=== PATIENT | male | born 1970 | race Caucasian/White ===

== ENCOUNTER 2016-08-11 09:05 | Emergency (ER) | payer SELFPAY ==
[2016-08-11] MEDS ORDERED: Sodium Chloride 0.9% 1,000 ML IV SCH (10:15)
--- NOTE | 2016-08-11 10:43 | EDM.PDOC ---
ED HPI GENERAL MEDICAL PROBLEM - General Chief Complaint: Back Pain or Injury Stated Complaint: BAD RIGHT SIDE PAIN Time Seen by Provider: 08/11/16 09:13 Source of Information: Reports: Patient, RN notes reviewed History Limitations: Reports: No Limitations - History of Present Illness INITIAL COMMENTS - FREE TEXT/NARRATIVE: The patient states that he has had right sided abdominal and right flank pain since yesterday, 08/10/2016, but that it is gotten worse today. He states that it waxes and wanes. It is made worse with deep breaths, making the left turns in his vehicle, and with various movements. It is made better with palpation of the area and remaining still. No recent fever, cough, nausea, vomiting, constipation, diarrhea, or urinary symptoms. The patient states that he has had similar symptoms on and off for the past several years. His only prior evaluations have been in the ED - he has never followed up with a PCP. Right Lower Back Pain Score (Numeric/FACES): 10 - Related Data Allergies Allergy/AdvReac Type Severity Reaction Status Date / Time amoxicillin Allergy Rash Verified 08/11/16 09:17 Penicillins Allergy Rash Verified 08/11/16 09:17 venom-honey bee Allergy Shortness Verified 08/11/16 09:17 of Breath Home Meds: Home Meds Orphenadrine [Norflex] 1 tab PO Q12H #20 tab.er 08/11/16 [Rx] Past Medical History Psychiatric History: Reports: Addiction - Past Surgical History Respiratory Surgical History: Reports: Other (see below) (Right chest tube) GI Surgical History: Reports: Hernia, inguinal (left) Musculoskeletal Surgical History: Reports: ORIF (right foot) Social & Family History - Family History Family Medical History: Noncontributory - Tobacco Use Smoking Status *Q: Current Every Day Smoker Years of Tobacco use: 30 Packs/Tins Daily: 1 Packs/Tins Daily Comment: down from 2 ppd - Caffeine Use Caffeine Use: Reports: Coffee, Soda - Alcohol Use Alcohol Use History: Yes Days Per Week of Alcohol Use: 7 Number of Drinks Per Day: 12 Total Drinks Per Week: 84 Alcohol Use Frequency: Daily - Recreational Drug Use Recreational Drug Use: Yes Drug Use in Last 12 Months: Yes Recreational Drug Type: Reports: Cocaine, Marijuana/Hashish, Methamphetamine Recreational Drug Use Frequency: Socially - Living Situation & Occupation Living situation: Reports: (), with family (daughter) Occupation: employed ([employer]) ED ROS GENERAL - Review of Systems Review Of Systems: See Below Constitutional: Reports: No Symptoms HEENT: Reports: No Symptoms Respiratory: Reports: No Symptoms Cardiovascular: Reports: No Symptoms Endocrine: Reports: No Symptoms GI/Abdominal: Reports: No Symptoms : Reports: No Symptoms Musculoskeletal: Reports: No Symptoms Skin: Reports: No Symptoms Neurological: Reports: No Symptoms Psychiatric: Reports: No Symptoms Hematologic/Lymphatic: Reports: No Symptoms Immunologic: Reports: No Symptoms ED EXAM, GENERAL - Physical Exam Exam: See Below Exam Limited By: No Limitations General Appearance: Alert, WD/WN, Mild Distress Eye Exam: Bilateral Eye: Normal Inspection Ears: Normal External Exam, Hearing Grossly Normal Ear Exam: bilateral ear: auricle normal Nose: Normal Inspection, No Blood Throat/Mouth: Normal Inspection, Normal Lips, Normal Voice, No Airway Compromise Head: Atraumatic, Normocephalic Neck: Normal Inspection, Full Range of Motion Respiratory/Chest: No Respiratory Distress, Lungs Clear, Normal Breath Sounds, No Accessory Muscle Use Cardiovascular: Normal Peripheral Pulses, Regular Rate, Rhythm, No Gallop, No JVD, No Murmur, No Rub Peripheral Pulses: 4+: Radial (L), Radial (R) GI/Abdominal: Normal Bowel Sounds, Soft, No Organomegaly, No Distention, No Abnormal Bruit, No Mass, Tender (Exquisite, to the far right side and lateral aspect of the right flank. Nontender elsewhere.) (Male) Exam: No Hernia Rectal (Males) Exam: Deferred Back Exam: Normal Inspection, Full Range of Motion, CVA Tenderness (R) (As above ). No: CVA Tenderness (L) Extremities: Normal Inspection, Normal Range of Motion, No Pedal Edema, Normal Capillary Refill Neurological: Alert, Oriented, Normal Cognition, No Motor/Sensory Deficits Psychiatric: Normal Affect Skin Exam: Warm, Dry, Intact, Normal Color, No Rash Lymphatic: No Adenopathy Course - Vital Signs Last Recorded V/S: Last Vital Signs Temp 36.5 C 08/11/16 09:12 Pulse 81 08/11/16 09:12 Resp 20 08/11/16 09:12 BP 157/101 H 08/11/16 09:12 Pulse Ox 97 08/11/16 09:12 - Orders/Labs/Meds Orders: Active Orders 24 hr Category Date Time Status Sodium Chloride 0.9% [Normal Saline] 1,000 ml Med 08/11/16 10:15 Active IV ASDIRECTED Sodium Chloride 0.9% [Saline Flush] Med 08/11/16 11:16 Active 10 ml FLUSH ONETIME PRN Medication Orders Sodium Chloride (Normal Saline) 1,000 mls @ 150 mls/hr IV ASDIRECTED JOANNA Last Admin: 08/11/16 10:20 Dose: 150 mls/hr Sodium Chloride (Saline Flush) 10 ml FLUSH ONETIME PRN PRN Reason: IV FLUSH Last Admin: 08/11/16 11:23 Dose: 10 ml Labs: Laboratory Tests 08/11/16 08/11/16 08/11/16 Range/Units 09:20 09:40 10:12 WBC 8.41 (4.23-9.07) K/mm3 RBC 4.13 L (4.63-6.08) M/mm3 Hgb 13.8 (13.7-17.5) gm/L Hct 39.9 L (40.1-51.0) % MCV 96.6 H (79.0-92.2) fl MCH 33.4 H (25.7-32.2) pg MCHC 34.6 (32.2-35.5) g/dl RDW Std Deviation 43.1 (35.1-43.9) fL Plt Count 244 (163-337) K/mm3 MPV 9.6 (9.4-12.3) fl Neutrophils % (Manual) 63 H (40-60) % Band Neutrophils % 0 (0-10) % Lymphocytes % (Manual) 23 (20-40) % Atypical Lymphs % 0 % Monocytes % (Manual) 8 (2-10) % Eosinophils % (Manual) 6 (0.8-7.0) % Basophils % (Manual) 0 L (0.2-1.2) Platelet Estimate Adequate RBC Morph Comment Normal Sodium 142 (136-145) mEq/L Potassium 4.7 (3.5-5.1) mEq/L Chloride 109 H (98-107) mEq/L Carbon Dioxide 23 (21-32) mEq/L Anion Gap 14.7 (5-15) BUN 12 (7-18) mg/dL Creatinine 0.9 (0.7-1.3) mg/dL Est Cr Clr Drug Dosing 103.64 mL/min Estimated GFR (MDRD) > 60 (>60) mL/min BUN/Creatinine Ratio 13.3 L (14-18) Glucose 102 (74-106) mg/dL Calcium 8.6 (8.5-10.1) mg/dL Total Bilirubin 0.4 (0.2-1.0) mg/dL AST 22 (15-37) U/L ALT 34 (16-63) U/L Alkaline Phosphatase 81 (46-116) U/L Total Protein 7.5 (6.4-8.2) g/dl Albumin 3.8 (3.4-5.0) g/dl Globulin 3.7 gm/dL Albumin/Globulin Ratio 1.0 (1-2) Lipase 134 (73-393) U/L Urine Color Yellow (Yellow) Urine Appearance Clear (Clear) Urine pH 6.0 (5.0-8.0) Ur Specific [place] > or = 1.030 (1.005-1.030) Urine Protein Negative (Negative) Urine Glucose (UA) Negative (Negative) Urine Ketones Negative (Negative) Urine Occult Blood Negative (Negative) Urine Nitrite Negative (Negative) Urine Bilirubin Negative (Negative) Urine Urobilinogen 0.2 (0.2-1.0) Ur Leukocyte Esterase Negative (Negative) Urine RBC 0-5 (0-5) /hpf Urine WBC 0-5 (0-5) /hpf Ur Epithelial Cells 0-5 (0-5) /hpf Urine Bacteria Rare (FEW) /hpf Urine Mucus Moderate H (FEW) /hpf Meds: Medications Generic Name Dose Route Start Last Admin Trade Name Freq PRN Reason Stop Dose Admin Sodium Chloride 1,000 mls @ 150 mls/hr 08/11/16 10:15 08/11/16 10:20 Normal Saline IV 150 mls/hr ASDIRECTED JOANNA Administration Sodium Chloride 10 ml 08/11/16 11:16 08/11/16 11:23 Saline Flush FLUSH 10 ml ONETIME PRN Administration IV FLUSH Discontinued Medications Generic Name Dose Route Start Last Admin Trade Name Freq PRN Reason Stop Dose Admin Diatrizoate Meglum/Diatrizoate Sod 90 ml 08/11/16 11:16 08/11/16 11:23 Gastrografin 37% PO 08/11/16 11:17 90 ml ONETIME ONE Administration Iopamidol 150 ml 08/11/16 11:16 08/11/16 11:23 Isovue-300 (61%) IVPUSH 08/11/16 11:17 125 ml ONETIME ONE Administration Orphenadrine Citrate 100 mg 08/11/16 12:17 08/11/16 12:40 Norflex PO 08/11/16 12:18 100 mg ONETIME STA Administration - Radiology Interpretation Free Text/Narrative:: CT of the chest with IV contrast is read by Dr. Person as: 1. Slight areas of scarring within the superior segment of the left lower lung with adjacent pleural thickening and pleural calcification. This is felt to be chronic. 2. Calcified granuloma within the upper right lung. 3. Other incidental findings. CT of the abdomen and pelvis with IV contrast is read by Dr. Person as: 1. Mild increased stool and other incidental findings to 2. Nothing acute is appreciated on CT study of the abdomen and pelvis. - Re-Assessments/Exams Free Text/Narrative Re-Assessment/Exam: 08/11/16 12:43 Test results discussed with the patient. Today's workup is entirely unremarkable, and does not explain the cause of the patient's pain. I suspect it is due to a muscle spasm or strain. I have started him on Norflex, and will prescribe the same. I will refer him to the clinic, as he does not currently have a PCP. Departure - Departure Time of Disposition: 12:43 Disposition: Home, Self-Care 01 Condition: fair Clinical Impression: Muscle spasm - Discharge Information Referrals: PCP,None [Primary Care Provider] - Kala Sandoval PA-C [Physician [employer]] - Forms: ED Department Discharge Additional Instructions: You were seen in the emergency room for recurrent right sided pain. Workup in the ER included blood work, a urinalysis, and a CT scan of your chest , abdomen, and pelvis. Your entire workup was unremarkable. You do not have a kidney stone. You do not have pneumonia. No lung tumor was found. The cause of your right-sided pain is unclear, but we suspect it is due to a muscle spasm. You have been started on the muscle relaxant Norflex. Take one tablet every 12 hours, as prescribed. If your symptoms persist, we recommend you followup with Kala Sandoval in the clinic. If any other problems, please do not hesitate to return to the ER. - My Orders Last 24 Hours: My Active Orders 08/11/16 10:15 Sodium Chloride 0.9% [Normal Saline] 1,000 ml IV ASDIRECTED 08/11/16 11:16 Sodium Chloride 0.9% [Saline Flush] 10 ml FLUSH ONETIME PRN - Assessment/Plan Last 24 Hours: My Active Orders 08/11/16 10:15 Sodium Chloride 0.9% [Normal Saline] 1,000 ml IV ASDIRECTED 08/11/16 11:16 Sodium Chloride 0.9% [Saline Flush] 10 ml FLUSH ONETIME PRN
[2016-08-11] MEDS ORDERED: Diatrizoate Meglumine/Diatrizoate Sodium 37% 120 ML Bottle PO ONE (11:16)
[2016-08-11] MEDS ORDERED: Iopamidol 612 MG/ML 150 ML Bottle IVPUSH ONE (11:16)
[2016-08-11] MEDS ORDERED: Sodium Chloride 0.9% 10 ML Syringe FLUSH PRN (11:16)
--- NOTE | 2016-08-11 11:52 | CT ---
CT chest Technique: Multiple axial sections were obtained from above the lung apices inferiorly through the lung bases. Intravenous contrast was utilized. Comparison: No previous chest CT, previous chest x-ray of 08/31/15 is available. Findings: No axillary adenopathy is seen. Mediastinum and hilar regions show no adenopathy or mass. Normal size lymph nodes are seen within the pretracheal region. No pericardial thickening is seen. No coronary artery calcification is noted. Calcified granuloma is noted within the right upper lung. Slight scarring is believed to be present within the superior segment of the left lower lung with slight associated pleural thickening with calcification. Mild dependent atelectasis is incidentally noted posteriorly. Bone window settings were reviewed which shows mild diffuse disc space narrowing and endplate osteophytes within the mid and lower thoracic spine. No rib fracture is identified. Impression: 1. Slight areas of scarring within the superior segment of the left lower lung with adjacent pleural thickening and pleural calcification. This is felt to be chronic. 2. Calcified granuloma within the upper right lung. 3. Other incidental findings. Diagnostic code #2 CT abdomen and pelvis Technique: Multiple axial sections were obtained from above the dome of the diaphragm inferiorly through the pubic symphysis. Delayed images were obtained through the bladder. Comparison: No previous abdominal imaging. Findings: Liver shows no focal parenchymal abnormality. Spleen appears within normal limits. Adrenal glands show no nodule. Pancreas is within normal limits. Kidneys show symmetric contrast enhancement without hydronephrosis or mass. Aorta shows no aneurysmal dilatation. No retroperitoneal adenopathy is seen. No mesenteric abnormalities are seen. No pelvic mass or adenopathy is noted. Delayed images shows contrast within the distal ureters and within the bladder. Mild increased stool is seen within the colon. Appendix is seen which appears normal. No free fluid or inflammatory change is seen. Bone window settings were reviewed which shows severe disc space narrowing at L5-S1. Impression: 1. Mild increased stool and other incidental findings. 2. Nothing acute is appreciated on CT study of the abdomen and pelvis. Diagnostic code #2
[2016-08-11] MEDS ORDERED: Orphenadrine 100 MG Tab.ER PO STA (12:17)
[2016-08-11 14:00] VITALS: BP 140/88
== END 2016-08-11 13:00 | disposition home or self-care (01) ==
LOC: JD.ED 09:05
DX: M62.838 Other muscle spasm (principal); R10.9 Unspecified abdominal pain; F17.210 Nicotine dependence, cigarettes, uncomplicated
CPT/HCPCS: 36415; 71260; 74177; 80053; 81001; 83690; 85025; 96360; 96361; 99284; A9270; J7040; J7050; Q9963; Q9967; 99283

== ENCOUNTER 2017-05-10 08:16 | Emergency (ER) | payer BC ==
[2017-05-10 08:31] VITALS: BP 173/109
[2017-05-10] MEDS ORDERED: Ketorolac 60 MG/2 ML SDV IM ONE (08:47)
[2017-05-10] MEDS ORDERED: Diazepam 5 MG Tab PO ONE (08:47)
[2017-05-10] MEDS ORDERED: HYDROmorphone 1 MG/ML Syringe IM ONE (08:47)
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
--- NOTE | 2017-05-10 09:19 | CR ---
Cervical spine: AP, lateral and odontoid views of the cervical spine were obtained. Comparison: No prior cervical spine study. Vertebral body heights and disc spaces are maintained. Mild endplate osteophytes are seen anteriorly within C4 and C5. Mild scoliosis is noted. No subluxation or fracture is seen. Impression: 1. Mild scoliosis. 2. Minimal degenerative change is noted. Diagnostic code #2
== END 2017-05-10 10:10 | disposition home or self-care (01) ==
LOC: JD.ED 08:16
DX: M43.6 Torticollis (principal); N18.9 Chronic kidney disease, unspecified; F17.210 Nicotine dependence, cigarettes, uncomplicated; Z88.1 Allergy status to other antibiotic agents; Z88.0 Allergy status to penicillin; Z91.030 Bee allergy status
CPT/HCPCS: 72040; 96372; 99283; A9270; J1170; J1885; 99284

== ENCOUNTER 2020-01-14 13:09 | Emergency (ER) | payer BC, OTHER ==
[2020-01-14 13:23] VITALS: PULSE 92
[2020-01-14 13:28] VITALS: BP 170/111
[2020-01-14] MEDS ORDERED: Ondansetron 4 MG/2 ML SDV IVPUSH ONE (13:37)
[2020-01-14] MEDS ORDERED: Ketorolac 30 MG/ML SDV IVPUSH ONE (13:37)
[2020-01-14] MEDS ORDERED: Cyclobenzaprine 10 MG Tab PO ONE (13:37)
[2020-01-14] MEDS ORDERED: HYDROmorphone 0.5 MG/0.5 ML Syringe IVPUSH ONE (13:37)
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
== END 2020-01-14 15:40 | disposition home or self-care (01) ==
LOC: JD.ED 13:09
DX: M54.6 Pain in thoracic spine (principal); J45.909 Unspecified asthma, uncomplicated; I25.2 Old myocardial infarction; I12.9 Hypertensive chronic kidney disease with stage 1 through stage 4 chronic kidney disease, or unspecified chronic kidney disease; N18.9 Chronic kidney disease, unspecified; F17.210 Nicotine dependence, cigarettes, uncomplicated; Z88.1 Allergy status to other antibiotic agents; Z91.041 Radiographic dye allergy status; Z91.030 Bee allergy status; Z88.0 Allergy status to penicillin
CPT/HCPCS: 81001; 96374; 96375; 99284; A9270; J1170; J1885; J2405; 99283

== ENCOUNTER 2020-03-31 21:58 | Emergency (ER) | payer OTHER ==
[2020-03-31 22:18] VITALS: BP 164/124; PULSE 100
== END 2020-03-31 22:48 | disposition left against medical advice (07) ==
LOC: JD.ED 21:58
DX: Z53.21 Procedure and treatment not carried out due to patient leaving prior to being seen by health care provider (principal)
CPT/HCPCS: 36415; 80053; 80307; 82150; 83690; 84484; 85025; 93005; 93010

== ENCOUNTER 2020-04-19 01:10 | Emergency (ER) | payer OTHER ==
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
[2020-04-19 01:48] VITALS: BP 135/106; PULSE 90
== END 2020-04-19 01:46 ==
LOC: JD.ED 01:10
DX: F10.229 Alcohol dependence with intoxication, unspecified (principal); I10 Essential (primary) hypertension; E66.9 Obesity, unspecified; Z72.0 Tobacco use; Z88.0 Allergy status to penicillin; Z91.041 Radiographic dye allergy status; Z91.030 Bee allergy status; Z88.1 Allergy status to other antibiotic agents
CPT/HCPCS: 99283

== ENCOUNTER 2020-04-29 11:06 | Inpatient (IN) | payer OTHER ==
[2020-04-29] MEDS ORDERED: Sodium Chloride 0.9% 10 ML Syringe FLUSH PRN (11:24)
[2020-04-29] MEDS ORDERED: Ondansetron 4 MG/2 ML SDV IVPUSH ONE (11:33)
[2020-04-29] MEDS ORDERED: LORazepam 2 MG/ML SDV IVPUSH ONE ×2 (11:33→13:24)
[2020-04-29] MEDS ORDERED: Sodium Chloride 0.9% 1,000 ML IV STA ×2 (11:33→12:48)
--- NOTE | 2020-04-29 11:39 | EDM.PDOC ---
ED HPI GENERAL MEDICAL PROBLEM - General Chief Complaint: Drug or Alcohol Abuse Stated Complaint: WITHDRAWAL Time Seen by Provider: 04/29/20 11:12 Source of Information: Reports: Patient, RN Notes Reviewed History Limitations: Reports: No Limitations - History of Present Illness INITIAL COMMENTS - FREE TEXT/NARRATIVE: Patient is a 50-year-old male presenting to the emergency department with complaints of alcohol withdrawal. Patient has a long history of alcohol abuse, most recently he has been drinking twenty four 16 ounce beers per day with occasional hard liquor. He was laid off from his job 2 months ago and this is when he began drinking excessively. Prior to this he would drink only socially. He has received notice that he is going back to work, therefore he must stop drinking. He stopped drinking yesterday, however last evening he had to have 2 beers around 8 PM to help with his shaking and dry heaves. At this time, patient complains of anxiety, tremors, nausea with dry heaving, and headache. He denies any active hallucinations. He has not had seizures with previous alcohol withdrawals. He denies any significant abdominal pain other than discomfort relating to the dry heaves. Right Flank Pain Score (Numeric/FACES): 3 - Related Data Allergies Allergy/AdvReac Type Severity Reaction Status Date / Time amoxicillin Allergy Rash Verified 04/29/20 11:13 Iodinated Contrast Media Allergy Rash Verified 04/29/20 11:13 [Iodinated Contrast- Oral and IV Dye] Penicillins Allergy Rash Verified 04/29/20 11:13 venom-honey bee Allergy Shortness Verified 04/29/20 11:13 of Breath levofloxacin [From Levaquin] AdvReac Itching Verified 04/29/20 11:13 Home Meds: Home Meds Escitalopram [Lexapro] 10 mg PO DAILY 04/29/20 [History] hydrOXYzine HCL [Hydroxyzine HCl] 25 mg PO DAILY 04/29/20 [History] lisinopriL [Lisinopril] 10 mg PO DAILY 04/29/20 [History] Past Medical History HEENT History: Reports: None Cardiovascular History: Reports: Hypertension Respiratory History: Reports: Pneumothorax Other Respiratory History: states had several stabs wounds to chest with chest tube placement. Other Gastrointestinal History: Right inguinal hernia Genitourinary History: Reports: Chronic Renal Insuffiency Musculoskeletal History: Reports: Fracture, Gout Other Musculoskeletal History: Herniated disc in lower back. Neurological History: Reports: Head Trauma Psychiatric History: Reports: Addiction, Anxiety, Panic Attack Endocrine/Metabolic History: Reports: Obesity/BMI 30+ Hematologic History: Reports: Blood Transfusion(s) Immunologic History: Reports: None Oncologic (Cancer) History: Reports: None Dermatologic History: Reports: None - Infectious Disease History Infectious Disease History: Reports: MRSA - Past Surgical History HEENT Surgical History: Reports: None Respiratory Surgical History: Reports: Other (See Below) GI Surgical History: Reports: Hernia, Inguinal Other GI Surgeries/Procedures: Right inguinal hernia repair Musculoskeletal Surgical History: Reports: ORIF Other Musculoskeletal Surgeries/Procedures:: L) foot surgery for Fx'd bones. - History Comment History Comment: Chronic daily alcohol use Social & Family History - Family History Family Medical History: No Pertinent Family History Cardiac: Reports: Hypertension, [place] Neurological: Reports: CVA - Tobacco Use Tobacco Use Status *Q: Current Every Day Tobacco User Years of Tobacco use: 30 Packs/Tins Daily: 1.5 - Caffeine Use Caffeine Use: Reports: Coffee, Tea Other Caffeine Use: Daily - Recreational Drug Use Recreational Drug Use: Yes Drug Use in Last 12 Months: No Recreational Drug Type: Reports: Cocaine, Marijuana/Hashish Recreational Drug Use Frequency: Not Used In Over 6 Months - Living Situation & Occupation Living situation: Reports: (), Other (With friends) Occupation: Unemployed (Laid-off [employer]) ED ROS GENERAL - Review of Systems Review Of Systems: See Below Constitutional: Reports: No Symptoms. Denies: Fever, Chills, Weakness HEENT: Reports: No Symptoms Respiratory: Reports: No Symptoms Cardiovascular: Reports: No Symptoms Endocrine: Reports: No Symptoms GI/Abdominal: Reports: Nausea, Vomiting. Denies: Abdominal Pain, Diarrhea : Reports: No Symptoms Musculoskeletal: Reports: No Symptoms Skin: Reports: No Symptoms Neurological: Reports: Headache. Denies: Dizziness Psychiatric: Reports: Anxiety. Denies: Hallucinations, Suicidal Ideation Hematologic/Lymphatic: Reports: No Symptoms Immunologic: Reports: No Symptoms ED EXAM, GENERAL - Physical Exam Exam: See Below Exam Limited By: No Limitations General Appearance: Alert, Anxious Eye Exam: Bilateral Eye: PERRL, Other (Watering bilaterally) Respiratory/Chest: No Respiratory Distress, Lungs Clear, Normal Breath Sounds, No Accessory Muscle Use, Chest Non-Tender Cardiovascular: Normal Peripheral Pulses, Regular Rate, Rhythm, No Edema, No Gallop, No JVD, No Murmur, No Rub GI/Abdominal: Normal Bowel Sounds, Soft, Non-Tender, No Organomegaly, No Distention, No Abnormal Bruit, No Mass Neurological: Alert, Oriented, Normal Cognition, Normal Gait, Normal Reflexes, No Motor/Sensory Deficits, Other (tremor) Psychiatric: Anxious Skin Exam: Warm, Intact, No Rash, Diaphoretic, Other (flushed) Lymphatic: No Adenopathy Course - Vital Signs Last Recorded V/S: Last Vital Signs Temp 97.4 F 04/29/20 11:19 Pulse 120 H 04/29/20 11:19 Resp 24 H 04/29/20 11:19 BP 183/104 H 04/29/20 11:19 Pulse Ox 95 04/29/20 11:19 - Orders/Labs/Meds Orders: Active Orders 24 hr Category Date Time Status Peripheral IV Care [RC] . DIRECTED Care 04/29/20 11:24 Active LORazepam [Ativan] Med 04/29/20 13:24 Once 1 mg IVPUSH ONETIME ONE Sodium Chloride 0.9% [Normal Saline] 1,000 ml Med 04/29/20 12:48 Active IV NOW Sodium Chloride 0.9% [Saline Flush] Med 04/29/20 11:24 Active 10 ml FLUSH ASDIRECTED PRN Peripheral IV Insertion Adult [OM.PC] Stat Oth 04/29/20 11:23 Ordered Medication Orders Sodium Chloride (Normal Saline) 1,000 mls @ 150 mls/hr IV NOW STA Stop: 04/29/20 19:27 Last Admin: 04/29/20 13:06 Dose: 150 mls/hr Documented by: ANDERSON Sodium Chloride (Saline Flush) 10 ml FLUSH ASDIRECTED PRN PRN Reason: Keep Vein Open Last Admin: 04/29/20 12:00 Dose: 10 ml Documented by: JEANNINE Labs: Laboratory Tests 04/29/20 04/29/20 04/29/20 Range/Units 11:40 11:40 11:40 WBC 7.29 (4.23-9.07) K/mm3 RBC 4.64 (4.63-6.08) M/mm3 Hgb 15.0 (13.7-17.5) gm/dl Hct 43.2 (40.1-51.0) % MCV 93.1 H (79.0-92.2) fl MCH 32.3 H (25.7-32.2) pg MCHC 34.7 (32.2-35.5) g/dl RDW Std Deviation 41.7 (35.1-43.9) fL Plt Count 219 (163-337) K/mm3 MPV 8.9 L (9.4-12.3) fl Neut % (Auto) 72.6 H (34.0-67.9) % Lymph % (Auto) 14.7 L (21.8-53.1) % Foard % (Auto) 10.7 (5.3-12.2) % Eos % (Auto) 1.4 (0.8-7.0) Baso % (Auto) 0.5 (0.1-1.2) % Neut # (Auto) 5.29 (1.78-5.38) K/mm3 Lymph # (Auto) 1.07 L (1.32-3.57) K/mm3 Foard # (Auto) 0.78 (0.30-0.82) K/mm3 Eos # (Auto) 0.10 (0.04-0.54) K/mm3 Baso # (Auto) 0.04 (0.01-0.08) K/mm3 Sodium 140 (136-145) mEq/L Potassium 4.5 (3.5-5.1) mEq/L Chloride 105 (98-107) mEq/L Carbon Dioxide 21 (21-32) mEq/L Anion Gap 18.5 H (5-15) BUN 19 H (7-18) mg/dL Creatinine 1.0 (0.7-1.3) mg/dL Est Cr Clr Drug Dosing 89.22 mL/min Estimated GFR (MDRD) > 60 (>60) mL/min BUN/Creatinine Ratio 19.0 H (14-18) Glucose 94 (74-106) mg/dL Calcium 8.8 (8.5-10.1) mg/dL Magnesium 2.0 (1.8-2.4) mg/dl Total Bilirubin 0.5 (0.2-1.0) mg/dL AST 60 H (15-37) U/L ALT 70 H (16-63) U/L Alkaline Phosphatase 69 (46-116) U/L C-Reactive Protein <0.2 (<1.0) mg/dL Total Protein 7.8 (6.4-8.2) g/dl Albumin 3.8 (3.4-5.0) g/dl Globulin 4.0 gm/dL Albumin/Globulin Ratio 1.0 (1-2) Lipase (73-393) U/L Urine Color (Yellow) Urine Appearance (Clear) Urine pH (5.0-8.0) Ur Specific Dexter (1.005-1.030) Urine Protein (Negative) Urine Glucose (UA) (Negative) Urine Ketones (Negative) Urine Occult Blood (Negative) Urine Nitrite (Negative) Urine Bilirubin (Negative) Urine Urobilinogen (0.2-1.0) Ur Leukocyte Esterase (Negative) Urine RBC (0-5) /hpf Urine WBC (0-5) /hpf Ur Squamous Epith Cells (0-5) /hpf Urine Bacteria (FEW) /hpf Urine Mucus (FEW) /hpf Urine Opiates Screen (PRRYTG=049) Ur Buprenorphine Scrn (CUTOFF=10) Ur Oxycodone Screen (FER4PY=578) Urine Methadone Screen (GXW5HI=068) Ur Propoxyphene Screen (JYPHVL=284) Ur Barbiturates Screen (UUWYEI=450) Ur Tricyclics Screen (IXEAVA=679) Ur Phencyclidine Scrn (CUTOFF=25) Ur Amphetamine Screen (EFFMCX=255) U Methamphetamines Scrn (VIVZCO=307) U Benzodiazepines Scrn (SXNWGZ=837) U Cocaine Metab Screen (YVXODI=492) U Marijuana (THC) Screen (CUTOFF=50) Ethyl Alcohol 0.03 (0.00) gm% SARS-CoV-2 RNA (EMMANUEL) (NEGATIVE) 04/29/20 04/29/20 04/29/20 Range/Units 11:40 11:56 12:45 WBC (4.23-9.07) K/mm3 RBC (4.63-6.08) M/mm3 Hgb (13.7-17.5) gm/dl Hct (40.1-51.0) % MCV (79.0-92.2) fl MCH (25.7-32.2) pg MCHC (32.2-35.5) g/dl RDW Std Deviation (35.1-43.9) fL Plt Count (163-337) K/mm3 MPV (9.4-12.3) fl Neut % (Auto) (34.0-67.9) % Lymph % (Auto) (21.8-53.1) % Foard % (Auto) (5.3-12.2) % Eos % (Auto) (0.8-7.0) Baso % (Auto) (0.1-1.2) % Neut # (Auto) (1.78-5.38) K/mm3 Lymph # (Auto) (1.32-3.57) K/mm3 Foard # (Auto) (0.30-0.82) K/mm3 Eos # (Auto) (0.04-0.54) K/mm3 Baso # (Auto) (0.01-0.08) K/mm3 Sodium (136-145) mEq/L Potassium (3.5-5.1) mEq/L Chloride (98-107) mEq/L Carbon Dioxide (21-32) mEq/L Anion Gap (5-15) BUN (7-18) mg/dL Creatinine (0.7-1.3) mg/dL Est Cr Clr Drug Dosing mL/min Estimated GFR (MDRD) (>60) mL/min BUN/Creatinine Ratio (14-18) Glucose (74-106) mg/dL Calcium (8.5-10.1) mg/dL Magnesium (1.8-2.4) mg/dl Total Bilirubin (0.2-1.0) mg/dL AST (15-37) U/L ALT (16-63) U/L Alkaline Phosphatase (46-116) U/L C-Reactive Protein (<1.0) mg/dL Total Protein (6.4-8.2) g/dl Albumin (3.4-5.0) g/dl Globulin gm/dL Albumin/Globulin Ratio (1-2) Lipase 165 (73-393) U/L Urine Color Yellow (Yellow) Urine Appearance Clear (Clear) Urine pH 5.5 (5.0-8.0) Ur Specific Dexter > or = 1.030 (1.005-1.030) Urine Protein Negative (Negative) Urine Glucose (UA) Negative (Negative) Urine Ketones Negative (Negative) Urine Occult Blood Negative (Negative) Urine Nitrite Negative (Negative) Urine Bilirubin Negative (Negative) Urine Urobilinogen 0.2 (0.2-1.0) Ur Leukocyte Esterase Negative (Negative) Urine RBC 0-5 (0-5) /hpf Urine WBC 0-5 (0-5) /hpf Ur Squamous Epith Cells 0-5 (0-5) /hpf Urine Bacteria Few (FEW) /hpf Urine Mucus Few (FEW) /hpf Urine Opiates Screen (JYGMUJ=266) Ur Buprenorphine Scrn (CUTOFF=10) Ur Oxycodone Screen (IZT0EG=440) Urine Methadone Screen (CVK8SB=694) Ur Propoxyphene Screen (MEJSEH=531) Ur Barbiturates Screen (BKEQLO=098) Ur Tricyclics Screen (ESFJXL=844) Ur Phencyclidine Scrn (CUTOFF=25) Ur Amphetamine Screen (WBTWXQ=890) U Methamphetamines Scrn (HKWMPD=993) U Benzodiazepines Scrn (VNVNZT=947) U Cocaine Metab Screen (BMSCNT=607) U Marijuana (THC) Screen (CUTOFF=50) Ethyl Alcohol (0.00) gm% SARS-CoV-2 RNA (EMMANUEL) Negative (NEGATIVE) 04/29/20 Range/Units 12:45 WBC (4.23-9.07) K/mm3 RBC (4.63-6.08) M/mm3 Hgb (13.7-17.5) gm/dl Hct (40.1-51.0) % MCV (79.0-92.2) fl MCH (25.7-32.2) pg MCHC (32.2-35.5) g/dl RDW Std Deviation (35.1-43.9) fL Plt Count (163-337) K/mm3 MPV (9.4-12.3) fl Neut % (Auto) (34.0-67.9) % Lymph % (Auto) (21.8-53.1) % Foard % (Auto) (5.3-12.2) % Eos % (Auto) (0.8-7.0) Baso % (Auto) (0.1-1.2) % Neut # (Auto) (1.78-5.38) K/mm3 Lymph # (Auto) (1.32-3.57) K/mm3 Foard # (Auto) (0.30-0.82) K/mm3 Eos # (Auto) (0.04-0.54) K/mm3 Baso # (Auto) (0.01-0.08) K/mm3 Sodium (136-145) mEq/L Potassium (3.5-5.1) mEq/L Chloride (98-107) mEq/L Carbon Dioxide (21-32) mEq/L Anion Gap (5-15) BUN (7-18) mg/dL Creatinine (0.7-1.3) mg/dL Est Cr Clr Drug Dosing mL/min Estimated GFR (MDRD) (>60) mL/min BUN/Creatinine Ratio (14-18) Glucose (74-106) mg/dL Calcium (8.5-10.1) mg/dL Magnesium (1.8-2.4) mg/dl Total Bilirubin (0.2-1.0) mg/dL AST (15-37) U/L ALT (16-63) U/L Alkaline Phosphatase (46-116) U/L C-Reactive Protein (<1.0) mg/dL Total Protein (6.4-8.2) g/dl Albumin (3.4-5.0) g/dl Globulin gm/dL Albumin/Globulin Ratio (1-2) Lipase (73-393) U/L Urine Color (Yellow) Urine Appearance (Clear) Urine pH (5.0-8.0) Ur Specific Dexter (1.005-1.030) Urine Protein (Negative) Urine Glucose (UA) (Negative) Urine Ketones (Negative) Urine Occult Blood (Negative) Urine Nitrite (Negative) Urine Bilirubin (Negative) Urine Urobilinogen (0.2-1.0) Ur Leukocyte Esterase (Negative) Urine RBC (0-5) /hpf Urine WBC (0-5) /hpf Ur Squamous Epith Cells (0-5) /hpf Urine Bacteria (FEW) /hpf Urine Mucus (FEW) /hpf Urine Opiates Screen Negative (OLFXPX=203) Ur Buprenorphine Scrn Negative (CUTOFF=10) Ur Oxycodone Screen Negative (GWD6ST=933) Urine Methadone Screen Negative (XDF2RY=761) Ur Propoxyphene Screen Negative (KFCEYX=928) Ur Barbiturates Screen Negative (HHANKG=754) Ur Tricyclics Screen Negative (KNBEWR=672) Ur Phencyclidine Scrn Negative (CUTOFF=25) Ur Amphetamine Screen Negative (ASGNRR=235) U Methamphetamines Scrn Negative (EGYBMF=312) U Benzodiazepines Scrn Negative (BLYVFB=212) U Cocaine Metab Screen Negative (GENPTV=780) U Marijuana (THC) Screen Negative (CUTOFF=50) Ethyl Alcohol (0.00) gm% SARS-CoV-2 RNA (EMMANUEL) (NEGATIVE) Meds: Medications Generic Name Dose Route Start Last Admin Trade Name Freq PRN Reason Stop Dose Admin Sodium Chloride 1,000 mls @ 150 mls/hr 04/29/20 12:48 04/29/20 13:06 Normal Saline IV 04/29/20 19:27 150 mls/hr NOW STA Administration Sodium Chloride 10 ml 04/29/20 11:24 04/29/20 12:00 Saline Flush FLUSH 10 ml ASDIRECTED PRN Administration Keep Vein Open Discontinued Medications Generic Name Dose Route Start Last Admin Trade Name Freq PRN Reason Stop Dose Admin Sodium Chloride 1,000 mls @ 999 mls/hr 04/29/20 11:33 04/29/20 11:50 Normal Saline IV 04/29/20 12:33 999 mls/hr NOW STA Administration Lorazepam 1 mg 04/29/20 11:33 04/29/20 11:49 Ativan IVPUSH 04/29/20 11:34 1 mg ONETIME ONE Administration Ondansetron HCl 4 mg 04/29/20 11:33 04/29/20 11:50 Zofran IVPUSH 04/29/20 11:34 4 mg ONETIME ONE Administration - Re-Assessments/Exams Free Text/Narrative Re-Assessment/Exam: Patient is a 50-year-old male presenting to the emergency department with complaints of alcohol withdrawal. For the last 2 months, he has been consuming approximately 384 ounces of beer per day as well as occasional hard liquor. He stopped drinking yesterday however had to take 2 beers at 8 PM last evening to help with the tremor. He has been notified that he is to go back to work, therefore he must stop drinking. On presentation to ER, patient is anxious, flushed, tremorous. Complains of nausea and dry heaving. CIWAA on triage was 19. Patient will likely require admission to the hospital given his significant withdrawal symptoms. I have ordered blood work, urinalysis, drug screen, Covid screen, 1 L of normal saline, Zofran 4 mg IV, and Ativan 1 mg IV. 04/29/20 13:25 Patient's work-up is grossly unremarkable. Blood alcohol 0.03, urine drug screen was negative. Case discussed with Dr. Forbes. He will admit the patient for alcohol detox. Patient is significantly tremulous. I ordered another Ativan 1 mg IV. Departure - Departure Time of Disposition: 13:26 Disposition: Admitted As Inpatient 64 Condition: Good Clinical Impression: Alcohol withdrawal syndrome Qualifiers: Complication of substance-induced condition: uncomplicated Qualified Code(s): F10.230 - Alcohol dependence with withdrawal, uncomplicated - Discharge Information Referrals: Merry Torres PA-C [Primary Care Provider] - Forms: ED Department Discharge Sepsis Event Note (ED) - Evaluation Sepsis Screening Result: No Definite Risk - Focused Exam Vital Signs: Vital Signs Temp Pulse Resp BP Pulse Ox 04/29/20 11:19 97.4 F 120 H 24 H 183/104 H 95 - My Orders Last 24 Hours: My Active Orders 04/29/20 11:23 Peripheral IV Insertion Adult [OM.PC] Stat 04/29/20 11:24 Peripheral IV Care [RC] . DIRECTED Sodium Chloride 0.9% [Saline Flush] 10 ml FLUSH ASDIRECTED PRN 04/29/20 12:48 Sodium Chloride 0.9% [Normal Saline] 1,000 ml IV NOW 04/29/20 13:24 LORazepam [Ativan] 1 mg IVPUSH ONETIME ONE - Assessment/Plan Last 24 Hours: My Active Orders 04/29/20 11:23 Peripheral IV Insertion Adult [OM.PC] Stat 04/29/20 11:24 Peripheral IV Care [RC] . DIRECTED Sodium Chloride 0.9% [Saline Flush] 10 ml FLUSH ASDIRECTED PRN 04/29/20 12:48 Sodium Chloride 0.9% [Normal Saline] 1,000 ml IV NOW 04/29/20 13:24 LORazepam [Ativan] 1 mg IVPUSH ONETIME ONE
--- NOTE | 2020-04-29 13:51 | PCM.HP.2 ---
H&P History of Present Illness - General Date of Service: 04/29/20 Admit Problem/Dx: Admission Diagnosis/Problem Admission Diagnosis/Problem Alcohol withdrawal syndrome Source of Information: Patient, Old Records History Limitations: Reports: No Limitations - History of Present Illness Initial Comments - Free Text/Narative: The patient is a 50-year-old gentleman who has presented to the emergency department out of concern for alcohol withdrawal. The patient reports that he was laid off from work several months ago and has been drinking heavily. The patient reports that he has been drinking at least 24 beers per day in addition to hard liquor. The patient also says that he has been drinking in the morning to help with his shakes and tremors. The patient has denied any withdrawal seizures. The patient also says that he has quit drinking in order to clean up because he got called back into work. 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 The patient says that his last drink was approximately 2 days ago. The patient has denied any pain. He had some vomiting this morning. The patient also uses tobacco. He does take medication for hypertension. The patient has been in his usual state of health up until the present time. Onset of Symptoms: Reports: Gradual Duration of Symptoms: Reports: Day(s):, Getting Worse Location: Reports: Generalized Quality: Reports: Ache Severity: Mild Improves with: Reports: None Worsens with: Reports: None Context: Reports: Other (Alcohol intoxication) Associated Symptoms: Reports: Diaphoresis, Other (Tremors) Right Flank Pain Score (Numeric/FACES): 3 - Related Data Allergies/Adverse Reactions: Allergies Allergy/AdvReac Type Severity Reaction Status Date / Time amoxicillin Allergy Rash Verified 04/29/20 11:13 Iodinated Contrast Media Allergy Rash Verified 04/29/20 11:13 [Iodinated Contrast- Oral and IV Dye] Penicillins Allergy Rash Verified 04/29/20 11:13 venom-honey bee Allergy Shortness Verified 04/29/20 11:13 of Breath levofloxacin [From Levaquin] AdvReac Itching Verified 04/29/20 11:13 Home Medications: Home Meds Escitalopram [Lexapro] 10 mg PO DAILY 04/29/20 [History] hydrOXYzine HCL [Hydroxyzine HCl] 25 mg PO DAILY 04/29/20 [History] lisinopriL [Lisinopril] 10 mg PO DAILY 04/29/20 [History] Past Medical History HEENT History: Reports: None Cardiovascular History: Reports: Hypertension Respiratory History: Reports: Pneumothorax Other Respiratory History: states had several stabs wounds to chest with chest tube placement. Other Gastrointestinal History: Right inguinal hernia Genitourinary History: Reports: Chronic Renal Insuffiency Musculoskeletal History: Reports: Fracture, Gout Other Musculoskeletal History: Herniated disc in lower back. Neurological History: Reports: Head Trauma Psychiatric History: Reports: Addiction, Anxiety, Panic Attack Endocrine/Metabolic History: Reports: Obesity/BMI 30+ Hematologic History: Reports: Blood Transfusion(s) Immunologic History: Reports: None Oncologic (Cancer) History: Reports: None Dermatologic History: Reports: None - Infectious Disease History Infectious Disease History: Reports: MRSA - Past Surgical History HEENT Surgical History: Reports: None Respiratory Surgical History: Reports: Other (See Below) GI Surgical History: Reports: Hernia, Inguinal Other GI Surgeries/Procedures: Right inguinal hernia repair Musculoskeletal Surgical History: Reports: ORIF Other Musculoskeletal Surgeries/Procedures:: L) foot surgery for Fx'd bones. - History Comment History Comment: Chronic daily alcohol use Social & Family History - Family History Family Medical History: No Pertinent Family History Cardiac: Reports: Hypertension, [place] Neurological: Reports: CVA - Tobacco Use Tobacco Use Status *Q: Current Every Day Tobacco User Years of Tobacco use: 30 Packs/Tins Daily: 1.5 - Caffeine Use Caffeine Use: Reports: Coffee, Tea Other Caffeine Use: Daily - Alcohol Use Alcohol Use History: Yes Days Per Week of Alcohol Use: 7 Number of Drinks Per Day: 24 Number of Drinks Per Day Comment: Plus hard liquor Total Drinks Per Week: 168 Date of Last Drink: 04/27/20 Alcohol Use in Last Twelve Months: Yes Alcohol Use Frequency: Daily - Recreational Drug Use Recreational Drug Use: Yes Drug Use in Last 12 Months: No Recreational Drug Type: Reports: Cocaine, Marijuana/Hashish Recreational Drug Use Frequency: Not Used In Over 6 Months - Living Situation & Occupation Living situation: Reports: (), Other (With friends) Occupation: Unemployed (Laid-off [employer]) H&P Review of Systems - Review of Systems: Review Of Systems: See Below General: Reports: Diaphoresis, Decreased Appetite HEENT: Reports: No Symptoms Pulmonary: Reports: Cough. Denies: Sputum Cardiovascular: Reports: No Symptoms Gastrointestinal: Reports: No Symptoms Genitourinary: Reports: No Symptoms Musculoskeletal: Reports: No Symptoms Skin: Reports: Erythema Psychiatric: Reports: Cravings Neurological: Reports: Tremors Hematologic/Lymphatic: Reports: No Symptoms Immunologic: Reports: No Symptoms Exam - Exam Exam: See Below - Vital Signs Vital Signs: Last Vital Signs Temp 36.3 C 04/29/20 11:19 Pulse 120 H 04/29/20 11:19 Resp 24 H 04/29/20 11:19 BP 183/104 H 04/29/20 11:19 Pulse Ox 95 04/29/20 11:19 Weight: 98.883 kg - Exam Quality Assessment: Supplemental Oxygen. No: DVT Prophylaxis General: Alert, Oriented, Cooperative, Moderate Distress HEENT: EACs Clear, EOMI, Hearing Intact, PERRLA. No: Conjunctiva Clear (Inflamed), Mucosa Moist & Temple (Dry with poor dentition ) Neck: Supple, Trachea Midline Lungs: Clear to Auscultation, Normal Respiratory Effort Cardiovascular: Regular Rhythm, Tachycardia GI/Abdominal Exam: Normal Bowel Sounds, Soft, Hepatomegaly (Male) Exam: Deferred Rectal (Males) Exam: Deferred Back Exam: Normal Inspection, Full Range of Motion Extremities: Normal Inspection, Normal Range of Motion, No Pedal Edema Skin: Warm, Dry, Other (Gilmer complexion) Neurological: Cranial Nerves Intact, Other (Coarse tremors) Neuro Extensive - Mental Status: Alert, Oriented x3 Psychiatric: Alert, Normal Affect, Normal Mood - Patient Data Lab Results Last 24 hrs: Laboratory Results - last 24 hr 04/29/20 04/29/20 04/29/20 Range/Units 11:40 11:40 11:40 WBC 7.29 (4.23-9.07) K/mm3 RBC 4.64 (4.63-6.08) M/mm3 Hgb 15.0 (13.7-17.5) gm/dl Hct 43.2 (40.1-51.0) % MCV 93.1 H (79.0-92.2) fl MCH 32.3 H (25.7-32.2) pg MCHC 34.7 (32.2-35.5) g/dl RDW Std Deviation 41.7 (35.1-43.9) fL Plt Count 219 (163-337) K/mm3 MPV 8.9 L (9.4-12.3) fl Neut % (Auto) 72.6 H (34.0-67.9) % Lymph % (Auto) 14.7 L (21.8-53.1) % Story % (Auto) 10.7 (5.3-12.2) % Eos % (Auto) 1.4 (0.8-7.0) Baso % (Auto) 0.5 (0.1-1.2) % Neut # (Auto) 5.29 (1.78-5.38) K/mm3 Lymph # (Auto) 1.07 L (1.32-3.57) K/mm3 Story # (Auto) 0.78 (0.30-0.82) K/mm3 Eos # (Auto) 0.10 (0.04-0.54) K/mm3 Baso # (Auto) 0.04 (0.01-0.08) K/mm3 Sodium 140 (136-145) mEq/L Potassium 4.5 (3.5-5.1) mEq/L Chloride 105 (98-107) mEq/L Carbon Dioxide 21 (21-32) mEq/L Anion Gap 18.5 H (5-15) BUN 19 H (7-18) mg/dL Creatinine 1.0 (0.7-1.3) mg/dL Est Cr Clr Drug Dosing 89.22 mL/min Estimated GFR (MDRD) > 60 (>60) mL/min BUN/Creatinine Ratio 19.0 H (14-18) Glucose 94 (74-106) mg/dL Calcium 8.8 (8.5-10.1) mg/dL Magnesium 2.0 (1.8-2.4) mg/dl Total Bilirubin 0.5 (0.2-1.0) mg/dL AST 60 H (15-37) U/L ALT 70 H (16-63) U/L Alkaline Phosphatase 69 (46-116) U/L C-Reactive Protein <0.2 (<1.0) mg/dL Total Protein 7.8 (6.4-8.2) g/dl Albumin 3.8 (3.4-5.0) g/dl Globulin 4.0 gm/dL Albumin/Globulin Ratio 1.0 (1-2) Lipase (73-393) U/L Urine Color (Yellow) Urine Appearance (Clear) Urine pH (5.0-8.0) Ur Specific [place] (1.005-1.030) Urine Protein (Negative) Urine Glucose (UA) (Negative) Urine Ketones (Negative) Urine Occult Blood (Negative) Urine Nitrite (Negative) Urine Bilirubin (Negative) Urine Urobilinogen (0.2-1.0) Ur Leukocyte Esterase (Negative) Urine RBC (0-5) /hpf Urine WBC (0-5) /hpf Ur Squamous Epith Cells (0-5) /hpf Urine Bacteria (FEW) /hpf Urine Mucus (FEW) /hpf Urine Opiates Screen (WUWPOU=978) Ur Buprenorphine Scrn (CUTOFF=10) Ur Oxycodone Screen (DQB9HX=793) Urine Methadone Screen (CID1AZ=016) Ur Propoxyphene Screen (JFMUMQ=824) Ur Barbiturates Screen (LHLTOI=264) Ur Tricyclics Screen (YTSYKB=382) Ur Phencyclidine Scrn (CUTOFF=25) Ur Amphetamine Screen (SQYHNA=310) U Methamphetamines Scrn (FVJDMM=153) U Benzodiazepines Scrn (FHLNJR=904) U Cocaine Metab Screen (GAOUHV=912) U Marijuana (THC) Screen (CUTOFF=50) Ethyl Alcohol 0.03 (0.00) gm% SARS-CoV-2 RNA (EMMANUEL) (NEGATIVE) 04/29/20 04/29/20 04/29/20 Range/Units 11:40 11:56 12:45 WBC (4.23-9.07) K/mm3 RBC (4.63-6.08) M/mm3 Hgb (13.7-17.5) gm/dl Hct (40.1-51.0) % MCV (79.0-92.2) fl MCH (25.7-32.2) pg MCHC (32.2-35.5) g/dl RDW Std Deviation (35.1-43.9) fL Plt Count (163-337) K/mm3 MPV (9.4-12.3) fl Neut % (Auto) (34.0-67.9) % Lymph % (Auto) (21.8-53.1) % Story % (Auto) (5.3-12.2) % Eos % (Auto) (0.8-7.0) Baso % (Auto) (0.1-1.2) % Neut # (Auto) (1.78-5.38) K/mm3 Lymph # (Auto) (1.32-3.57) K/mm3 Story # (Auto) (0.30-0.82) K/mm3 Eos # (Auto) (0.04-0.54) K/mm3 Baso # (Auto) (0.01-0.08) K/mm3 Sodium (136-145) mEq/L Potassium (3.5-5.1) mEq/L Chloride (98-107) mEq/L Carbon Dioxide (21-32) mEq/L Anion Gap (5-15) BUN (7-18) mg/dL Creatinine (0.7-1.3) mg/dL Est Cr Clr Drug Dosing mL/min Estimated GFR (MDRD) (>60) mL/min BUN/Creatinine Ratio (14-18) Glucose (74-106) mg/dL Calcium (8.5-10.1) mg/dL Magnesium (1.8-2.4) mg/dl Total Bilirubin (0.2-1.0) mg/dL AST (15-37) U/L ALT (16-63) U/L Alkaline Phosphatase (46-116) U/L C-Reactive Protein (<1.0) mg/dL Total Protein (6.4-8.2) g/dl Albumin (3.4-5.0) g/dl Globulin gm/dL Albumin/Globulin Ratio (1-2) Lipase 165 (73-393) U/L Urine Color Yellow (Yellow) Urine Appearance Clear (Clear) Urine pH 5.5 (5.0-8.0) Ur Specific [place] > or = 1.030 (1.005-1.030) Urine Protein Negative (Negative) Urine Glucose (UA) Negative (Negative) Urine Ketones Negative (Negative) Urine Occult Blood Negative (Negative) Urine Nitrite Negative (Negative) Urine Bilirubin Negative (Negative) Urine Urobilinogen 0.2 (0.2-1.0) Ur Leukocyte Esterase Negative (Negative) Urine RBC 0-5 (0-5) /hpf Urine WBC 0-5 (0-5) /hpf Ur Squamous Epith Cells 0-5 (0-5) /hpf Urine Bacteria Few (FEW) /hpf Urine Mucus Few (FEW) /hpf Urine Opiates Screen (JNPEKI=400) Ur Buprenorphine Scrn (CUTOFF=10) Ur Oxycodone Screen (MFR4DH=856) Urine Methadone Screen (NWM8WD=708) Ur Propoxyphene Screen (WIXFFN=258) Ur Barbiturates Screen (QGWMKI=662) Ur Tricyclics Screen (KIBSSK=460) Ur Phencyclidine Scrn (CUTOFF=25) Ur Amphetamine Screen (QNEHNH=816) U Methamphetamines Scrn (PSFOUO=777) U Benzodiazepines Scrn (STEHOL=319) U Cocaine Metab Screen (QRKPRV=405) U Marijuana (THC) Screen (CUTOFF=50) Ethyl Alcohol (0.00) gm% SARS-CoV-2 RNA (EMMANUEL) Negative (NEGATIVE) 04/29/20 Range/Units 12:45 WBC (4.23-9.07) K/mm3 RBC (4.63-6.08) M/mm3 Hgb (13.7-17.5) gm/dl Hct (40.1-51.0) % MCV (79.0-92.2) fl MCH (25.7-32.2) pg MCHC (32.2-35.5) g/dl RDW Std Deviation (35.1-43.9) fL Plt Count (163-337) K/mm3 MPV (9.4-12.3) fl Neut % (Auto) (34.0-67.9) % Lymph % (Auto) (21.8-53.1) % Story % (Auto) (5.3-12.2) % Eos % (Auto) (0.8-7.0) Baso % (Auto) (0.1-1.2) % Neut # (Auto) (1.78-5.38) K/mm3 Lymph # (Auto) (1.32-3.57) K/mm3 Story # (Auto) (0.30-0.82) K/mm3 Eos # (Auto) (0.04-0.54) K/mm3 Baso # (Auto) (0.01-0.08) K/mm3 Sodium (136-145) mEq/L Potassium (3.5-5.1) mEq/L Chloride (98-107) mEq/L Carbon Dioxide (21-32) mEq/L Anion Gap (5-15) BUN (7-18) mg/dL Creatinine (0.7-1.3) mg/dL Est Cr Clr Drug Dosing mL/min Estimated GFR (MDRD) (>60) mL/min BUN/Creatinine Ratio (14-18) Glucose (74-106) mg/dL Calcium (8.5-10.1) mg/dL Magnesium (1.8-2.4) mg/dl Total Bilirubin (0.2-1.0) mg/dL AST (15-37) U/L ALT (16-63) U/L Alkaline Phosphatase (46-116) U/L C-Reactive Protein (<1.0) mg/dL Total Protein (6.4-8.2) g/dl Albumin (3.4-5.0) g/dl Globulin gm/dL Albumin/Globulin Ratio (1-2) Lipase (73-393) U/L Urine Color (Yellow) Urine Appearance (Clear) Urine pH (5.0-8.0) Ur Specific [place] (1.005-1.030) Urine Protein (Negative) Urine Glucose (UA) (Negative) Urine Ketones (Negative) Urine Occult Blood (Negative) Urine Nitrite (Negative) Urine Bilirubin (Negative) Urine Urobilinogen (0.2-1.0) Ur Leukocyte Esterase (Negative) Urine RBC (0-5) /hpf Urine WBC (0-5) /hpf Ur Squamous Epith Cells (0-5) /hpf Urine Bacteria (FEW) /hpf Urine Mucus (FEW) /hpf Urine Opiates Screen Negative (WGDVQD=992) Ur Buprenorphine Scrn Negative (CUTOFF=10) Ur Oxycodone Screen Negative (RUW4CU=208) Urine Methadone Screen Negative (IYH7SD=838) Ur Propoxyphene Screen Negative (QNXBWN=466) Ur Barbiturates Screen Negative (IROMIL=405) Ur Tricyclics Screen Negative (WOYUGD=609) Ur Phencyclidine Scrn Negative (CUTOFF=25) Ur Amphetamine Screen Negative (HKPKBS=848) U Methamphetamines Scrn Negative (ECFNGF=160) U Benzodiazepines Scrn Negative (SLJEXF=261) U Cocaine Metab Screen Negative (ESMGDS=264) U Marijuana (THC) Screen Negative (CUTOFF=50) Ethyl Alcohol (0.00) gm% SARS-CoV-2 RNA (EMMANUEL) (NEGATIVE) Result Diagrams: 04/29/20 11:40 04/29/20 11:40 Sepsis Event Note - Evaluation Sepsis Screening Result: No Definite Risk - Focused Exam Vital Signs: Vital Signs Temp Pulse Resp BP Pulse Ox 04/29/20 11:19 36.3 C 120 H 24 H 183/104 H 95 - Problem List (1) Alcohol withdrawal syndrome SNOMED Code(s): 980208873 ICD Code: F10.239 - ALCOHOL DEPENDENCE WITH WITHDRAWAL, UNSPECIFIED Status: Acute Priority: High Current Visit: Yes Qualifiers: Complication of substance-induced condition: uncomplicated Qualified Code(s): F10.230 - Alcohol dependence with withdrawal, uncomplicated (2) Alcohol dependence, daily use SNOMED Code(s): 950401950 ICD Code: F10.20 - ALCOHOL DEPENDENCE, UNCOMPLICATED Status: Chronic Priority: High Current Visit: Yes (3) Tobacco dependence SNOMED Code(s): 87464578 ICD Code: F17.200 - NICOTINE DEPENDENCE, UNSPECIFIED, UNCOMPLICATED Status: Chronic Priority: Medium Current Visit: Yes (4) Dehydration SNOMED Code(s): 81039602 ICD Code: E86.0 - DEHYDRATION Status: Acute Priority: High Current Visit: Yes Problem List Initiated/Reviewed/Updated: Yes Orders Last 24hrs: Active Orders 24 hr Category Date Time Status Patient Status [ADT] Routine ADT 04/29/20 13:45 Active Peripheral IV Care [RC] . DIRECTED Care 04/29/20 11:24 Active Sodium Chloride 0.9% [Normal Saline] 1,000 ml Med 04/29/20 12:48 Active IV NOW Sodium Chloride 0.9% [Saline Flush] Med 04/29/20 11:24 Active 10 ml FLUSH ASDIRECTED PRN Peripheral IV Insertion Adult [OM.PC] Stat Oth 04/29/20 11:23 Ordered Medication Orders Sodium Chloride (Normal Saline) 1,000 mls @ 150 mls/hr IV NOW STA Stop: 04/29/20 19:27 Last Admin: 04/29/20 13:06 Dose: 150 mls/hr Documented by: ANDERSON Sodium Chloride (Saline Flush) 10 ml FLUSH ASDIRECTED PRN PRN Reason: Keep Vein Open Last Admin: 04/29/20 12:00 Dose: 10 ml Documented by: JEANNINE Assessment/Plan Comment:: The patient is a 50-year-old gentleman who will be admitted to the intensive care unit for very close monitoring. He does have severe tremors and tachycardia. The patient will be placed on CIWA protocol for alcohol withdrawal syndrome. The patient will also be kept on Ativan for possible seizure associated with alcohol withdrawal. He is currently tachycardic and will be kept on monitor. The patient is also nicotine dependent and will be afforded a nicotine patch at 21 mg daily. The patient will also have normal saline at 125 mg/h in order to help improve his dehydration. The patient also has been started on thiamine 100 mg p.o. daily and folate 1 mg daily as well as Librium 25 mg p.o. 3 times daily. Repeat laboratory studies have been ordered. The patient should be appropriate for discharge in 2 to 3 days. - Mortality Measure Prognosis:: Good
[2020-04-29] MEDS ORDERED: Docusate Sodium 100 MG Cap PO PRN (13:52)
[2020-04-29] MEDS ORDERED: Morphine 2 MG/ML SYRINGE IVPUSH PRN (13:52)
[2020-04-29] MEDS ORDERED: Ondansetron 4 MG Tab.DIS PO PRN (13:52)
[2020-04-29] MEDS ORDERED: LORazepam 2 MG/ML SDV IVPUSH PRN ×2 (13:52→14:32)
--- NOTE | 2020-04-29 14:58 | US ---
Limited abdominal ultrasound: Multiple real-time images of the upper right abdomen were obtained. Liver is echogenic as compared to the right kidney which most likely represents fatty infiltration. Hypoechoic area is identified next to the gallbladder compatible with small area of focal fatty sparing. Gallbladder contains no shadowing gallstones. No gallbladder wall thickening is seen. Common bile duct is within normal limits at 6.4 mm. Proximal aorta shows an AP dimension of 2.9 cm. Pancreas is poorly defined due to bowel gas. Inferior vena cava is patent. Main portal vein shows normal hepatopedal flow. Impression: 1. Liver shows evidence of fatty infiltration. Small area of focal fatty sparing is noted next to the gallbladder. 2. Upper abdominal aorta has an AP dimension of about 2.9 cm. 3. No acute abnormality is otherwise seen. Study is slightly limited as noted above. Diagnostic code #3
[2020-04-29] MEDS: Nicotine 21 MG/24 Hr Patch TRDERM SCH (15:30)
[2020-04-29] MEDS: chlordiazePOXIDE 25 MG Cap PO SCH ×2 (15:31→21:17)
[2020-04-29] MEDS: LORazepam 2 MG/ML SDV IVPUSH PRN ×3 (15:40→21:17)
[2020-04-29] MEDS: Acetaminophen 325 MG Tab PO PRN (17:21)
[2020-04-29] MEDS: Folic Acid 1 MG Tab PO SCH (21:17)
[2020-04-29] MEDS: Thiamine 100 MG Tab PO SCH (21:17)
[2020-04-29] MEDS: Sodium Chloride 0.9% 1,000 ML IV SCH (21:21)
[2020-04-30] MEDS: LORazepam 2 MG/ML SDV IVPUSH PRN ×9 (00:07→22:00)
[2020-04-30] MEDS: Sodium Chloride 0.9% 1,000 ML IV SCH (03:44)
--- NOTE | 2020-04-30 07:43 | PCM.PN ---
- General Info Date of Service: 04/30/20 Admission Dx/Problem (Free Text): Admission Diagnosis/Problem Admission Diagnosis/Problem Alcohol withdrawal syndrome Subjective Update: Patient is a 50-year-old gentleman who had been admitted yesterday secondary to acute alcohol withdrawal. The patient today is somewhat lethargic as he has had Ativan to help control his agitation. The patient has been tolerating diet. Functional Status: Reports: Pain Controlled, Tolerating Diet - Review of Systems General: Reports: No Symptoms HEENT: Reports: No Symptoms Pulmonary: Reports: No Symptoms Cardiovascular: Reports: No Symptoms Gastrointestinal: Reports: No Symptoms Genitourinary: Reports: No Symptoms Musculoskeletal: Reports: No Symptoms Skin: Reports: No Symptoms Neurological: Reports: No Symptoms Psychiatric: Reports: Agitation - Patient Data Vitals - Most Recent: Last Vital Signs Temp 36.4 C 04/30/20 04:00 Pulse 109 H 04/29/20 14:40 Resp 22 H 04/30/20 04:00 BP 148/85 H 04/30/20 04:00 Pulse Ox 94 L 04/30/20 04:00 Weight - Most Recent: 96.745 kg I&O - Last 24 Hours: Intake & Output 04/29/20 04/30/20 04/30/20 22:59 06:59 14:59 Intake Total 991 1405 Output Total 550 600 Balance 441 805 Lab Results Last 24 Hours: Laboratory Results - last 24 hr 04/29/20 04/29/20 04/29/20 Range/Units 11:40 11:40 11:40 WBC 7.29 (4.23-9.07) K/mm3 RBC 4.64 (4.63-6.08) M/mm3 Hgb 15.0 (13.7-17.5) gm/dl Hct 43.2 (40.1-51.0) % MCV 93.1 H (79.0-92.2) fl MCH 32.3 H (25.7-32.2) pg MCHC 34.7 (32.2-35.5) g/dl RDW Std Deviation 41.7 (35.1-43.9) fL Plt Count 219 (163-337) K/mm3 MPV 8.9 L (9.4-12.3) fl Neut % (Auto) 72.6 H (34.0-67.9) % Lymph % (Auto) 14.7 L (21.8-53.1) % [place] % (Auto) 10.7 (5.3-12.2) % Eos % (Auto) 1.4 (0.8-7.0) Baso % (Auto) 0.5 (0.1-1.2) % Neut # (Auto) 5.29 (1.78-5.38) K/mm3 Lymph # (Auto) 1.07 L (1.32-3.57) K/mm3 [place] # (Auto) 0.78 (0.30-0.82) K/mm3 Eos # (Auto) 0.10 (0.04-0.54) K/mm3 Baso # (Auto) 0.04 (0.01-0.08) K/mm3 Sodium 140 (136-145) mEq/L Potassium 4.5 (3.5-5.1) mEq/L Chloride 105 (98-107) mEq/L Carbon Dioxide 21 (21-32) mEq/L Anion Gap 18.5 H (5-15) BUN 19 H (7-18) mg/dL Creatinine 1.0 (0.7-1.3) mg/dL Est Cr Clr Drug Dosing 89.22 mL/min Estimated GFR (MDRD) > 60 (>60) mL/min BUN/Creatinine Ratio 19.0 H (14-18) Glucose 94 (74-106) mg/dL Calcium 8.8 (8.5-10.1) mg/dL Magnesium 2.0 (1.8-2.4) mg/dl Total Bilirubin 0.5 (0.2-1.0) mg/dL AST 60 H (15-37) U/L ALT 70 H (16-63) U/L Alkaline Phosphatase 69 (46-116) U/L C-Reactive Protein <0.2 (<1.0) mg/dL Total Protein 7.8 (6.4-8.2) g/dl Albumin 3.8 (3.4-5.0) g/dl Globulin 4.0 gm/dL Albumin/Globulin Ratio 1.0 (1-2) Triglycerides (<150) mg/dL Cholesterol (<200) mg/dL LDL Cholesterol Direct (<100) mg/dL HDL Cholesterol (40-59) mg/dL Lipase (73-393) U/L Urine Color (Yellow) Urine Appearance (Clear) Urine pH (5.0-8.0) Ur Specific [place] (1.005-1.030) Urine Protein (Negative) Urine Glucose (UA) (Negative) Urine Ketones (Negative) Urine Occult Blood (Negative) Urine Nitrite (Negative) Urine Bilirubin (Negative) Urine Urobilinogen (0.2-1.0) Ur Leukocyte Esterase (Negative) Urine RBC (0-5) /hpf Urine WBC (0-5) /hpf Ur Squamous Epith Cells (0-5) /hpf Urine Bacteria (FEW) /hpf Urine Mucus (FEW) /hpf Urine Opiates Screen (UXXZYD=562) Ur Buprenorphine Scrn (CUTOFF=10) Ur Oxycodone Screen (PLT6UX=330) Urine Methadone Screen (AYM8OV=207) Ur Propoxyphene Screen (VISRSY=634) Ur Barbiturates Screen (QVPLTP=160) Ur Tricyclics Screen (VWFUZE=467) Ur Phencyclidine Scrn (CUTOFF=25) Ur Amphetamine Screen (XENPSU=744) U Methamphetamines Scrn (GNZBQD=066) U Benzodiazepines Scrn (RRMPQU=497) U Cocaine Metab Screen (ZIRCEZ=937) U Marijuana (THC) Screen (CUTOFF=50) Ethyl Alcohol 0.03 (0.00) gm% SARS-CoV-2 RNA (EMMANUEL) (NEGATIVE) 04/29/20 04/29/20 04/29/20 Range/Units 11:40 11:56 12:45 WBC (4.23-9.07) K/mm3 RBC (4.63-6.08) M/mm3 Hgb (13.7-17.5) gm/dl Hct (40.1-51.0) % MCV (79.0-92.2) fl MCH (25.7-32.2) pg MCHC (32.2-35.5) g/dl RDW Std Deviation (35.1-43.9) fL Plt Count (163-337) K/mm3 MPV (9.4-12.3) fl Neut % (Auto) (34.0-67.9) % Lymph % (Auto) (21.8-53.1) % [place] % (Auto) (5.3-12.2) % Eos % (Auto) (0.8-7.0) Baso % (Auto) (0.1-1.2) % Neut # (Auto) (1.78-5.38) K/mm3 Lymph # (Auto) (1.32-3.57) K/mm3 [place] # (Auto) (0.30-0.82) K/mm3 Eos # (Auto) (0.04-0.54) K/mm3 Baso # (Auto) (0.01-0.08) K/mm3 Sodium (136-145) mEq/L Potassium (3.5-5.1) mEq/L Chloride (98-107) mEq/L Carbon Dioxide (21-32) mEq/L Anion Gap (5-15) BUN (7-18) mg/dL Creatinine (0.7-1.3) mg/dL Est Cr Clr Drug Dosing mL/min Estimated GFR (MDRD) (>60) mL/min BUN/Creatinine Ratio (14-18) Glucose (74-106) mg/dL Calcium (8.5-10.1) mg/dL Magnesium (1.8-2.4) mg/dl Total Bilirubin (0.2-1.0) mg/dL AST (15-37) U/L ALT (16-63) U/L Alkaline Phosphatase (46-116) U/L C-Reactive Protein (<1.0) mg/dL Total Protein (6.4-8.2) g/dl Albumin (3.4-5.0) g/dl Globulin gm/dL Albumin/Globulin Ratio (1-2) Triglycerides (<150) mg/dL Cholesterol (<200) mg/dL LDL Cholesterol Direct (<100) mg/dL HDL Cholesterol (40-59) mg/dL Lipase 165 (73-393) U/L Urine Color Yellow (Yellow) Urine Appearance Clear (Clear) Urine pH 5.5 (5.0-8.0) Ur Specific [place] > or = 1.030 (1.005-1.030) Urine Protein Negative (Negative) Urine Glucose (UA) Negative (Negative) Urine Ketones Negative (Negative) Urine Occult Blood Negative (Negative) Urine Nitrite Negative (Negative) Urine Bilirubin Negative (Negative) Urine Urobilinogen 0.2 (0.2-1.0) Ur Leukocyte Esterase Negative (Negative) Urine RBC 0-5 (0-5) /hpf Urine WBC 0-5 (0-5) /hpf Ur Squamous Epith Cells 0-5 (0-5) /hpf Urine Bacteria Few (FEW) /hpf Urine Mucus Few (FEW) /hpf Urine Opiates Screen (XQIRQG=113) Ur Buprenorphine Scrn (CUTOFF=10) Ur Oxycodone Screen (YOM8SK=137) Urine Methadone Screen (XFH8DT=033) Ur Propoxyphene Screen (VBYVVE=955) Ur Barbiturates Screen (NGSWDF=389) Ur Tricyclics Screen (PUGBQV=746) Ur Phencyclidine Scrn (CUTOFF=25) Ur Amphetamine Screen (JJNNAL=226) U Methamphetamines Scrn (RKDQCL=208) U Benzodiazepines Scrn (SZDUSC=008) U Cocaine Metab Screen (FYEROZ=828) U Marijuana (THC) Screen (CUTOFF=50) Ethyl Alcohol (0.00) gm% SARS-CoV-2 RNA (EMMANUEL) Negative (NEGATIVE) 04/29/20 04/30/20 04/30/20 Range/Units 12:45 06:04 06:04 WBC 4.16 L (4.23-9.07) K/mm3 RBC 4.07 L (4.63-6.08) M/mm3 Hgb 13.2 L D (13.7-17.5) gm/dl Hct 39.3 L (40.1-51.0) % MCV 96.6 H D (79.0-92.2) fl MCH 32.4 H (25.7-32.2) pg MCHC 33.6 (32.2-35.5) g/dl RDW Std Deviation 43.3 (35.1-43.9) fL Plt Count 180 (163-337) K/mm3 MPV 9.1 L (9.4-12.3) fl Neut % (Auto) 48.3 (34.0-67.9) % Lymph % (Auto) 32.0 (21.8-53.1) % [place] % (Auto) 13.7 H (5.3-12.2) % Eos % (Auto) 4.8 (0.8-7.0) Baso % (Auto) 0.7 (0.1-1.2) % Neut # (Auto) 2.01 (1.78-5.38) K/mm3 Lymph # (Auto) 1.33 (1.32-3.57) K/mm3 [place] # (Auto) 0.57 (0.30-0.82) K/mm3 Eos # (Auto) 0.20 (0.04-0.54) K/mm3 Baso # (Auto) 0.03 (0.01-0.08) K/mm3 Sodium 145 (136-145) mEq/L Potassium 4.1 (3.5-5.1) mEq/L Chloride 110 H (98-107) mEq/L Carbon Dioxide 24 (21-32) mEq/L Anion Gap 15.1 H (5-15) BUN 14 (7-18) mg/dL Creatinine 1.0 (0.7-1.3) mg/dL Est Cr Clr Drug Dosing 89.22 mL/min Estimated GFR (MDRD) > 60 (>60) mL/min BUN/Creatinine Ratio 14.0 (14-18) Glucose 95 (74-106) mg/dL Calcium 8.1 L (8.5-10.1) mg/dL Magnesium 2.2 (1.8-2.4) mg/dl Total Bilirubin 0.7 (0.2-1.0) mg/dL AST 38 H (15-37) U/L ALT 49 (16-63) U/L Alkaline Phosphatase 53 (46-116) U/L C-Reactive Protein (<1.0) mg/dL Total Protein 6.3 L (6.4-8.2) g/dl Albumin 2.9 L (3.4-5.0) g/dl Globulin 3.4 gm/dL Albumin/Globulin Ratio 0.9 L (1-2) Triglycerides 130 (<150) mg/dL Cholesterol 147 (<200) mg/dL LDL Cholesterol Direct 68 (<100) mg/dL HDL Cholesterol 58.0 (40-59) mg/dL Lipase (73-393) U/L Urine Color (Yellow) Urine Appearance (Clear) Urine pH (5.0-8.0) Ur Specific [place] (1.005-1.030) Urine Protein (Negative) Urine Glucose (UA) (Negative) Urine Ketones (Negative) Urine Occult Blood (Negative) Urine Nitrite (Negative) Urine Bilirubin (Negative) Urine Urobilinogen (0.2-1.0) Ur Leukocyte Esterase (Negative) Urine RBC (0-5) /hpf Urine WBC (0-5) /hpf Ur Squamous Epith Cells (0-5) /hpf Urine Bacteria (FEW) /hpf Urine Mucus (FEW) /hpf Urine Opiates Screen Negative (NNIRGP=680) Ur Buprenorphine Scrn Negative (CUTOFF=10) Ur Oxycodone Screen Negative (ZLB0YH=984) Urine Methadone Screen Negative (EBA2KH=590) Ur Propoxyphene Screen Negative (WLJUTK=826) Ur Barbiturates Screen Negative (MSKMFN=802) Ur Tricyclics Screen Negative (EPSSTN=974) Ur Phencyclidine Scrn Negative (CUTOFF=25) Ur Amphetamine Screen Negative (QPYEKV=882) U Methamphetamines Scrn Negative (CNRLZT=359) U Benzodiazepines Scrn Negative (ABPTMT=988) U Cocaine Metab Screen Negative (GZQEDL=652) U Marijuana (THC) Screen Negative (CUTOFF=50) Ethyl Alcohol (0.00) gm% SARS-CoV-2 RNA (EMMANUEL) (NEGATIVE) Med Orders - Current: Current Medications Acetaminophen (Tylenol) 650 mg PO Q4H PRN PRN Reason: Pain (Mild 1-3)/fever Last Admin: 04/29/20 17:21 Dose: 650 mg Documented by: Albuterol/Ipratropium (Duoneb 3.0-0.5 Mg/3 Ml) 3 ml NEB Q4HRRT PRN PRN Reason: Dyspnea Chlordiazepoxide HCl (Librium) 25 mg PO TID [facility] Last Admin: 04/29/20 21:17 Dose: 25 mg Documented by: Docusate Sodium (Colace) 100 mg PO BID PRN PRN Reason: Constipation Enoxaparin Sodium (Lovenox) 40 mg SUBCUT DAILY [facility] Folic Acid (Folic Acid) 1 mg PO BEDTIME [facility] Last Admin: 04/29/20 21:17 Dose: 1 mg Documented by: Hydroxyzine HCl (Atarax) 25 mg PO DAILY [facility] Sodium Chloride (Normal Saline) 1,000 mls @ 125 mls/hr IV ASDIRECTED [facility] Last Admin: 04/30/20 03:44 Dose: 125 mls/hr Documented by: Lisinopril (Prinivil) 10 mg PO DAILY [facility] Lorazepam (Ativan) 0 mg IVPUSH ASDIRECTED PRN; Protocol PRN Reason: Withdrawal Symptoms Last Admin: 04/30/20 07:43 Dose: 2 mg Documented by: Miscellaneous Information (Remove Patch) 1 ea TRDERM Q24H [facility] Morphine Sulfate (Morphine) 2 mg IVPUSH Q2H PRN PRN Reason: Pain (severe 7-10) Stop: 04/30/20 13:55 Nicotine (Habitrol) 21 mg TRDERM Q24H [facility] Last Admin: 04/29/20 15:30 Dose: 21 mg Documented by: Ondansetron HCl (Zofran Odt) 4 mg PO Q6H PRN PRN Reason: nausea, able to take PO Oxycodone HCl (Oxycodone) 5 mg PO Q4H PRN PRN Reason: Pain (moderate 4-6) Sodium Chloride (Saline Flush) 10 ml FLUSH ASDIRECTED PRN PRN Reason: Keep Vein Open Last Admin: 04/29/20 12:00 Dose: 10 ml Documented by: Thiamine HCl (Vitamin B-1) 100 mg PO BEDTIME [facility] Last Admin: 04/29/20 21:17 Dose: 100 mg Documented by: Discontinued Medications Sodium Chloride (Normal Saline) 1,000 mls @ 999 mls/hr IV NOW STA Stop: 04/29/20 12:33 Last Admin: 04/29/20 11:50 Dose: 999 mls/hr Documented by: Sodium Chloride (Normal Saline) 1,000 mls @ 150 mls/hr IV NOW STA Stop: 04/29/20 19:27 Last Infusion: 04/29/20 15:15 Dose: 125 mls/hr Documented by: Lorazepam (Ativan) 1 mg IVPUSH ONETIME ONE Stop: 04/29/20 11:34 Last Admin: 04/29/20 11:49 Dose: 1 mg Documented by: Lorazepam (Ativan) 1 mg IVPUSH ONETIME ONE Stop: 04/29/20 13:25 Last Admin: 04/29/20 13:49 Dose: 1 mg Documented by: Lorazepam (Ativan) 1 mg IVPUSH Q4H PRN PRN Reason: Agitation Lorazepam (Ativan) 1 mg IVPUSH ASDIRECTED PRN; Protocol PRN Reason: Agitation Lorazepam (Ativan) 2 mg IVPUSH ASDIRECTED PRN; Protocol PRN Reason: Withdrawal Symptoms Last Admin: 04/29/20 17:21 Dose: 1 mg Documented by: Ondansetron HCl (Zofran) 4 mg IVPUSH ONETIME ONE Stop: 04/29/20 11:34 Last Admin: 04/29/20 11:50 Dose: 4 mg Documented by: - Exam Quality Assessment: DVT Prophylaxis. No: Supplemental Oxygen General: Lethargic HEENT: Pupils Equal, Pupils Reactive, EOMI. No: Mucous Membr. Moist/[place] (Dry) Neck: Supple, Trachea Midline Lungs: Crackles, Rales, Wheezing Cardiovascular: Regular Rate, Regular Rhythm GI/Abdominal Exam: Normal Bowel Sounds, Soft, No Distention (Male) Exam: Deferred Back Exam: Normal Inspection, Full Range of Motion Extremities: Normal Inspection, No Pedal Edema Skin: Warm, Dry, Intact Neurological: No New Focal Deficit Psy/Mental Status: Alert Sepsis Event Note - Evaluation Sepsis Screening Result: No Definite Risk - Focused Exam Vital Signs: Vital Signs Temp Resp BP Pulse Ox 04/30/20 04:00 36.4 C 22 H 148/85 H 94 L 04/30/20 01:06 23 H 148/99 H 95 04/30/20 00:00 36.7 C 23 H 164/110 H 97 04/29/20 20:00 36.6 C 20 133/81 95 - Problem List & Annotations (1) Alcohol withdrawal syndrome SNOMED Code(s): 464606042 Code(s): F10.239 - ALCOHOL DEPENDENCE WITH WITHDRAWAL, UNSPECIFIED Status: Acute Priority: High Current Visit: Yes Qualifiers: Complication of substance-induced condition: uncomplicated Qualified Code(s): F10.230 - Alcohol dependence with withdrawal, uncomplicated (2) Alcohol dependence, daily use SNOMED Code(s): 880586726 Code(s): F10.20 - ALCOHOL DEPENDENCE, UNCOMPLICATED Status: Chronic Pr iority: High Current Visit: Yes (3) Tobacco dependence SNOMED Code(s): 06251595 Code(s): F17.200 - NICOTINE DEPENDENCE, UNSPECIFIED, UNCOMPLICATED Status: Chronic Priority: Medium Current Visit: Yes (4) Dehydration SNOMED Code(s): 61711150 Code(s): E86.0 - DEHYDRATION Status: Acute Priority: High Current Visit: Yes - Problem List Review Problem List Initiated/Reviewed/Updated: Yes - My Orders Last 24 Hours: My Active Orders 04/29/20 13:52 Patient Status [ADT] Routine CIWAA Assessment [RC] Q1HR Oxygen Therapy [RC] DAILY Up ad Lynnette [RC] ASDIRECTED VTE/DVT Education [RC] PER UNIT ROUTINE Vital Signs [RC] Q4HR Acetaminophen [TylenoL] 650 mg PO Q4H PRN Docusate Sodium [Colace] 100 mg PO BID PRN Morphine 2 mg IVPUSH Q2H PRN Ondansetron [Zofran ODT] 4 mg PO Q6H PRN oxyCODONE 5 mg PO Q4H PRN Resuscitation Status Routine 04/29/20 13:53 Cardiac Monitoring [RC] CONTINUOUS 04/29/20 14:00 Sodium Chloride 0.9% [Normal Saline] 1,000 ml IV ASDIRECTED 04/29/20 15:00 Nicotine [Habitrol] 21 mg TRDERM Q24H chlordiazePOXIDE [Librium] 25 mg PO TID 04/29/20 Dinner Heart Healthy Diet [DIET] 04/29/20 19:14 LORazepam [Ativan] See Protocol IVPUSH ASDIRECTED PRN 04/29/20 21:00 Folic Acid 1 mg PO BEDTIME Thiamine [Vitamin B-1] 100 mg PO BEDTIME 04/30/20 07:35 Albuterol/Ipratropium [DuoNeb 3.0-0.5 MG/3 ML] 3 ml NEB Q4HRRT PRN 04/30/20 07:36 RT Aerosol Therapy [RC] ASDIRECTED 04/30/20 07:37 Chest 1V Frontal [CR] Routine 04/30/20 09:00 Enoxaparin [Lovenox] 40 mg SUBCUT DAILY hydrOXYzine HCL [Atarax] 25 mg PO DAILY lisinopriL [Prinivil] 10 mg PO DAILY 04/30/20 15:00 Remove Patch 1 ea TRDERM Q24H - Plan Plan:: The patient is a 50-year-old gentleman who will be admitted to the intensive care unit for very close monitoring. He does have severe tremors and tachycardia. The patient will be placed on CIWA protocol for alcohol withdrawal syndrome. The patient will also be kept on Ativan for possible seizure associated with alcohol withdrawal. He is currently tachycardic and will be kept on monitor. The patient is also nicotine dependent and will be afforded a nicotine patch at 21 mg daily. The patient will also have normal saline at 125 mg/h in order to help improve his dehydration. The patient also has been started on thiamine 100 mg p.o. daily and folate 1 mg daily as well as Librium 25 mg p.o. 3 times daily. Repeat laboratory studies have been ordered. The patient should be appropriate for discharge in 2 to 3 days. 04/30/2020 The patient is a 50-year-old gentleman who will continue in ICU due to his alcohol withdrawal syndrome as well as possible seizure. This is done for close monitoring. Patient still has tremors although his tachycardia has resolved. The patient's CIWA scores have been elevated and this evaluation will continue every hour. Repeat laboratory studies have been ordered. Continue to monitor vital signs and adjust as hypertensive medications as necessary. Continue with appropriate diet. Ambulation encouraged. I have also ordered a chest x-ray due to the patient's abnormal lung auscultation. Also the patient will have DuoNeb nebulizers for his wheezing. I am concerned that the patient's prospect for continued sobriety will be poor.
[2020-04-30] MEDS: Albuterol/Ipratropium 3.0-0.5 MG/3 ML Neb Soln NEB PRN (07:45)
--- NOTE | 2020-04-30 08:43 | CR ---
Chest: Portable view of the chest was obtained. Comparison: Prior chest x-ray of 11/05/18. Slight scarring is seen vertically within the left mid to lower lung. Stable granuloma is noted within the right upper lung. Lungs otherwise are clear with no acute parenchymal change. Heart size and mediastinum are normal. Bony structures are grossly intact. Impression: 1. Stable findings as noted above. 2. Nothing acute is seen. Diagnostic code #2
[2020-04-30] MEDS: Enoxaparin 40 MG/0.4 ML Syringe SUBCUT SCH (09:18)
[2020-04-30] MEDS: Lisinopril 10 MG Tab PO SCH (09:19)
[2020-04-30] MEDS: hydrOXYzine HCl 25 MG Tab PO SCH (09:19)
[2020-04-30] MEDS: chlordiazePOXIDE 25 MG Cap PO SCH ×3 (09:19→20:12)
[2020-04-30] MEDS: oxyCODONE 5 MG Tab PO PRN ×2 (11:26→20:12)
[2020-04-30] MEDS: Nicotine 21 MG/24 Hr Patch TRDERM SCH (14:51)
[2020-04-30] MEDS: Thiamine 100 MG Tab PO SCH (20:12)
[2020-04-30] MEDS: Folic Acid 1 MG Tab PO SCH (20:13)
[2020-05-01] MEDS: LORazepam 2 MG/ML SDV IVPUSH PRN ×6 (00:23→19:26)
[2020-05-01] MEDS: oxyCODONE 5 MG Tab PO PRN ×3 (03:24→23:04)
--- NOTE | 2020-05-01 07:17 | PCM.PN ---
- General Info Date of Service: 05/01/20 Admission Dx/Problem (Free Text): Admission Diagnosis/Problem Admission Diagnosis/Problem Alcohol withdrawal syndrome Subjective Update: The patient is a 50-year-old gentleman who was admitted to acute hospitalization on April 29, 2020 due to alcohol withdrawal. The patient's had CIWA scores in the low teens to high teens. He is required as of yesterday 12 mg of Ativan. Patient says today that he feels like there are people out to get him. The patient has denied any pain. He has been tolerating diet. The patient's primary goal at this point is to go back to work. The patient had a stent in inpatient rehab 1-1/2 years ago. Functional Status: Reports: Pain Controlled, Tolerating Diet - Review of Systems General: Reports: No Symptoms HEENT: Reports: No Symptoms Pulmonary: Reports: No Symptoms Cardiovascular: Reports: No Symptoms Gastrointestinal: Reports: No Symptoms Genitourinary: Reports: No Symptoms Musculoskeletal: Reports: No Symptoms Skin: Reports: No Symptoms Neurological: Reports: Confusion, Tremors Psychiatric: Reports: Agitation, Cravings - Patient Data Vitals - Most Recent: Last Vital Signs Temp 36.2 C 05/01/20 04:00 Pulse 109 H 04/29/20 14:40 Resp 16 05/01/20 04:00 BP 125/79 05/01/20 04:00 Pulse Ox 98 05/01/20 04:00 Weight - Most Recent: 96.654 kg I&O - Last 24 Hours: Intake & Output 04/30/20 05/01/20 05/01/20 22:59 06:59 14:59 Intake Total 773 Output Total 900 Balance 773 -900 Lab Results Last 24 Hours: Laboratory Results - last 24 hr 05/01/20 05/01/20 Range/Units 05:57 05:57 WBC 5.23 (4.23-9.07) K/mm3 RBC 4.16 L (4.63-6.08) M/mm3 Hgb 13.4 L (13.7-17.5) gm/dl Hct 40.6 (40.1-51.0) % MCV 97.6 H (79.0-92.2) fl MCH 32.2 (25.7-32.2) pg MCHC 33.0 (32.2-35.5) g/dl RDW Std Deviation 43.5 (35.1-43.9) fL Plt Count 179 (163-337) K/mm3 MPV 9.2 L (9.4-12.3) fl Neut % (Auto) 61.7 (34.0-67.9) % Lymph % (Auto) 22.2 (21.8-53.1) % [place] % (Auto) 11.1 (5.3-12.2) % Eos % (Auto) 4.0 (0.8-7.0) Baso % (Auto) 0.8 (0.1-1.2) % Neut # (Auto) 3.23 (1.78-5.38) K/mm3 Lymph # (Auto) 1.16 L (1.32-3.57) K/mm3 [place] # (Auto) 0.58 (0.30-0.82) K/mm3 Eos # (Auto) 0.21 (0.04-0.54) K/mm3 Baso # (Auto) 0.04 (0.01-0.08) K/mm3 Sodium 139 (136-145) mEq/L Potassium 4.1 (3.5-5.1) mEq/L Chloride 105 (98-107) mEq/L Carbon Dioxide 26 (21-32) mEq/L Anion Gap 12.1 (5-15) BUN 14 (7-18) mg/dL Creatinine 1.0 (0.7-1.3) mg/dL Est Cr Clr Drug Dosing 89.22 mL/min Estimated GFR (MDRD) > 60 (>60) mL/min BUN/Creatinine Ratio 14.0 (14-18) Glucose 105 (74-106) mg/dL Calcium 8.4 L (8.5-10.1) mg/dL Magnesium 2.2 (1.8-2.4) mg/dl Total Bilirubin 0.5 (0.2-1.0) mg/dL AST 35 (15-37) U/L ALT 46 (16-63) U/L Alkaline Phosphatase 53 (46-116) U/L Total Protein 6.6 (6.4-8.2) g/dl Albumin 2.9 L (3.4-5.0) g/dl Globulin 3.7 gm/dL Albumin/Globulin Ratio 0.8 L (1-2) Med Orders - Current: Current Medications Acetaminophen (Tylenol) 650 mg PO Q4H PRN PRN Reason: Pain (Mild 1-3)/fever Last Admin: 04/29/20 17:21 Dose: 650 mg Documented by: Albuterol/Ipratropium (Duoneb 3.0-0.5 Mg/3 Ml) 3 ml NEB Q4HRRT PRN PRN Reason: Dyspnea Last Admin: 04/30/20 07:45 Dose: 3 ml Documented by: Chlordiazepoxide HCl (Librium) 25 mg PO TID REPLACED BY [facility] Last Admin: 04/30/20 20:12 Dose: 25 mg Documented by: Docusate Sodium (Colace) 100 mg PO BID PRN PRN Reason: Constipation Enoxaparin Sodium (Lovenox) 40 mg SUBCUT DAILY REPLACED BY [facility] Last Admin: 04/30/20 09:18 Dose: 40 mg Documented by: Folic Acid (Folic Acid) 1 mg PO BEDTIME REPLACED BY [facility] Last Admin: 04/30/20 20:13 Dose: 1 mg Documented by: Hydroxyzine HCl (Atarax) 25 mg PO DAILY REPLACED BY [facility] Last Admin: 04/30/20 09:19 Dose: 25 mg Documented by: Sodium Chloride (Normal Saline) 1,000 mls @ 125 mls/hr IV ASDIRECTED REPLACED BY [facility] Last Infusion: 04/30/20 08:05 Dose: 0 mls/hr Documented by: Lisinopril (Prinivil) 10 mg PO DAILY REPLACED BY [facility] Last Admin: 04/30/20 09:19 Dose: 10 mg Documented by: Lorazepam (Ativan) 0 mg IVPUSH ASDIRECTED PRN; Protocol PRN Reason: Withdrawal Symptoms Last Admin: 05/01/20 05:14 Dose: 2 mg Documented by: Miscellaneous Information (Remove Patch) 1 ea TRDERM Q24H REPLACED BY [facility] Last Admin: 04/30/20 14:52 Dose: 1 ea Documented by: Nicotine (Habitrol) 21 mg TRDERM Q24H REPLACED BY [facility] Last Admin: 04/30/20 14:51 Dose: 21 mg Documented by: Ondansetron HCl (Zofran Odt) 4 mg PO Q6H PRN PRN Reason: nausea, able to take PO Oxycodone HCl (Oxycodone) 5 mg PO Q4H PRN PRN Reason: Pain (moderate 4-6) Last Admin: 05/01/20 03:24 Dose: 5 mg Documented by: Sodium Chloride (Saline Flush) 10 ml FLUSH ASDIRECTED PRN PRN Reason: Keep Vein Open Last Admin: 04/29/20 12:00 Dose: 10 ml Documented by: Thiamine HCl (Vitamin B-1) 100 mg PO BEDTIME JOANNA Last Admin: 04/30/20 20:12 Dose: 100 mg Documented by: Discontinued Medications Sodium Chloride (Normal Saline) 1,000 mls @ 999 mls/hr IV NOW STA Stop: 04/29/20 12:33 Last Admin: 04/29/20 11:50 Dose: 999 mls/hr Documented by: Sodium Chloride (Normal Saline) 1,000 mls @ 150 mls/hr IV NOW STA Stop: 04/29/20 19:27 Last Infusion: 04/29/20 15:15 Dose: 125 mls/hr Documented by: Lorazepam (Ativan) 1 mg IVPUSH ONETIME ONE Stop: 04/29/20 11:34 Last Admin: 04/29/20 11:49 Dose: 1 mg Documented by: Lorazepam (Ativan) 1 mg IVPUSH ONETIME ONE Stop: 04/29/20 13:25 Last Admin: 04/29/20 13:49 Dose: 1 mg Documented by: Lorazepam (Ativan) 1 mg IVPUSH Q4H PRN PRN Reason: Agitation Lorazepam (Ativan) 1 mg IVPUSH ASDIRECTED PRN; Protocol PRN Reason: Agitation Lorazepam (Ativan) 2 mg IVPUSH ASDIRECTED PRN; Protocol PRN Reason: Withdrawal Symptoms Last Admin: 04/29/20 17:21 Dose: 1 mg Documented by: Morphine Sulfate (Morphine) 2 mg IVPUSH Q2H PRN PRN Reason: Pain (severe 7-10) Stop: 04/30/20 13:55 Ondansetron HCl (Zofran) 4 mg IVPUSH ONETIME ONE Stop: 04/29/20 11:34 Last Admin: 04/29/20 11:50 Dose: 4 mg Documented by: - Exam Quality Assessment: Supplemental Oxygen, DVT Prophylaxis General: Alert, Lethargic HEENT: Pupils Equal, Pupils Reactive, EOMI. No: Mucous Membr. Moist/[place] (Dry) Neck: Supple, Trachea Midline Lungs: Crackles, Rales Cardiovascular: Regular Rate, Regular Rhythm GI/Abdominal Exam: Normal Bowel Sounds, No Distention (Male) Exam: Deferred Back Exam: Normal Inspection, Full Range of Motion Extremities: Normal Inspection, No Pedal Edema Skin: Warm, Dry, Intact Neurological: Other (Tremors) Psy/Mental Status: Alert, Agitated, Withdrawal Symptoms Sepsis Event Note - Evaluation Sepsis Screening Result: No Definite Risk - Focused Exam Vital Signs: Vital Signs Temp Resp BP Pulse Ox 05/01/20 04:00 36.2 C 16 125/79 98 05/01/20 00:00 36.6 C 20 128/82 95 04/30/20 20:00 36.2 C 17 142/93 H 95 - Problem List & Annotations (1) Alcohol withdrawal syndrome SNOMED Code(s): 755199627 Code(s): F10.239 - ALCOHOL DEPENDENCE WITH WITHDRAWAL, UNSPECIFIED Status: Acute Priority: High Current Visit: Yes Qualifiers: Complication of substance-induced condition: uncomplicated Qualified Code(s): F10.230 - Alcohol dependence with withdrawal, uncomplicated (2) Alcohol dependence, daily use SNOMED Code(s): 224142338 Code(s): F10.20 - ALCOHOL DEPENDENCE, UNCOMPLICATED Status: Chronic Priority: High Current Visit: Yes (3) Tobacco dependence SNOMED Code(s): 57756168 Code(s): F17.200 - NICOTINE DEPENDENCE, UNSPECIFIED, UNCOMPLICATED Status: Chronic Priority: Medium Current Visit: Yes (4) Dehydration SNOMED Code(s): 04855549 Code(s): E86.0 - DEHYDRATION Status: Acute Priority: High Current Visit: Yes - Problem List Review Problem List Initiated/Reviewed/Updated: Yes - My Orders Last 24 Hours: My Active Orders 04/30/20 07:35 Albuterol/Ipratropium [DuoNeb 3.0-0.5 MG/3 ML] 3 ml NEB Q4HRRT PRN 04/30/20 07:36 RT Aerosol Therapy [RC] ASDIRECTED 04/30/20 09:00 Enoxaparin [Lovenox] 40 mg SUBCUT DAILY hydrOXYzine HCL [Atarax] 25 mg PO DAILY lisinopriL [Prinivil] 10 mg PO DAILY 04/30/20 Lunch Heart Healthy Diet [DIET] 04/30/20 15:00 Remove Patch 1 abhishek LATHAM Q24H - Plan Plan:: The patient is a 50-year-old gentleman who will be admitted to the intensive care unit for very close monitoring. He does have severe tremors and tac hycardia. The patient will be placed on CIWA protocol for alcohol withdrawal syndrome. The patient will also be kept on Ativan for possible seizure associated with alcohol withdrawal. He is currently tachycardic and will be kept on monitor. The patient is also nicotine dependent and will be afforded a nicotine patch at 21 mg daily. The patient will also have normal saline at 125 mg/h in order to help improve his dehydration. The patient also has been started on thiamine 100 mg p.o. daily and folate 1 mg daily as well as Librium 25 mg p.o. 3 times daily. Repeat laboratory studies have been ordered. The patient should be appropriate for discharge in 2 to 3 days. 04/30/2020 The patient is a 50-year-old gentleman who will continue in ICU due to his alcohol withdrawal syndrome as well as possible seizure. This is done for close monitoring. Patient still has tremors although his tachycardia has resolved. The patient's CIWA scores have been elevated and this evaluation will continue every hour. Repeat laboratory studies have been ordered. Continue to monitor vital signs and adjust as hypertensive medications as necessary. Continue with appropriate diet. Ambulation encouraged. I have also ordered a chest x-ray due to the patient's abnormal lung auscultation. Also the patient will have DuoNeb nebulizers for his wheezing. I am concerned that the patient's prospect for continued sobriety will be poor. 05/01/2020 Patient is a 50-year-old gentleman who is continuing to have severe withdrawal symptoms. His monitoring scores have been high and his requirements for Ativan have also been elevated. Today the patient has exhibited some paranoid behavior however I do not believe he is hallucinating. We will continue with the CIWA protocol. Ativan as ordered. The patient will have Librium 25 mg p.o. 3 times daily. The patient will continue to have vital signs monitored and his hypertensive medications will be adjusted accordingly. Ambulation has been encouraged. I am concerned that the patient may refuse inpatient rehabilitation and I believe that this is the patient's best option. He does have a long h istory of substance abuse coupled with alcohol abuse and without inpatient rehab I feel that the patient's prospects for continued sobriety will be poor.
[2020-05-01] MEDS: Lisinopril 10 MG Tab PO SCH (08:55)
[2020-05-01] MEDS: Enoxaparin 40 MG/0.4 ML Syringe SUBCUT SCH (08:55)
[2020-05-01] MEDS: hydrOXYzine HCl 25 MG Tab PO SCH (08:55)
[2020-05-01] MEDS: chlordiazePOXIDE 25 MG Cap PO SCH ×4 (08:56→21:26)
[2020-05-01] MEDS: Nicotine 21 MG/24 Hr Patch TRDERM SCH (14:32)
[2020-05-01] MEDS: Folic Acid 1 MG Tab PO SCH ×2 (19:17→21:26)
[2020-05-01] MEDS: Thiamine 100 MG Tab PO SCH ×2 (19:17→21:26)
[2020-05-01] MEDS: cloNIDine 0.1 MG Tab PO PRN (19:51)
[2020-05-01] MEDS: Acetaminophen 325 MG Tab PO PRN (23:03)
[2020-05-02] MEDS: cloNIDine 0.1 MG Tab PO PRN (04:46)
[2020-05-02] MEDS: oxyCODONE 5 MG Tab PO PRN ×2 (04:47→19:32)
[2020-05-02] MEDS: Albuterol/Ipratropium 3.0-0.5 MG/3 ML Neb Soln NEB PRN ×2 (08:07→16:53)
[2020-05-02] MEDS: hydrOXYzine HCl 25 MG Tab PO SCH (08:18)
[2020-05-02] MEDS: Lisinopril 10 MG Tab PO SCH (08:18)
[2020-05-02] MEDS: chlordiazePOXIDE 25 MG Cap PO SCH ×4 (08:20→20:39)
[2020-05-02] MEDS: Enoxaparin 40 MG/0.4 ML Syringe SUBCUT SCH (08:20)
--- NOTE | 2020-05-02 08:39 | PCM.PN ---
- General Info Date of Service: 05/02/20 Admission Dx/Problem (Free Text): Admission Diagnosis/Problem Admission Diagnosis/Problem Alcohol withdrawal syndrome Subjective Update: The patient is a 50-year-old gentleman who was admitted to acute hospitalization on April 29, 2020 due to impending alcohol withdrawals. Patient is more awake and alert today. He has less tremors. The patient also has a lower CIWA score. He is denied any pain. The patient also says that he does not want to go to rehab. Functional Status: Reports: Pain Controlled, Tolerating Diet - Review of Systems General: Reports: Night Sweats HEENT: Reports: No Symptoms Pulmonary: Reports: Shortness of Breath, Cough, Wheezing Cardiovascular: Reports: No Symptoms Gastrointestinal: Reports: No Symptoms Genitourinary: Reports: No Symptoms Musculoskeletal: Reports: No Symptoms Skin: Reports: Diaphoresis Neurological: Reports: Headache, Tremors Psychiatric: Reports: Confusion, Cravings - Patient Data Vitals - Most Recent: Last Vital Signs Temp 36.1 C 05/02/20 08:00 Pulse 75 05/02/20 08:00 Resp 19 05/02/20 08:00 BP 127/104 H 05/02/20 08:18 Pulse Ox 95 05/02/20 08:07 Weight - Most Recent: 96.654 kg I&O - Last 24 Hours: Intake & Output 05/01/20 05/02/20 05/02/20 22:59 06:59 14:59 Intake Total 810 500 Output Total 200 400 Balance 610 100 Lab Results Last 24 Hours: Laboratory Results - last 24 hr 05/02/20 05/02/20 Range/Units 05:20 05:20 WBC 5.05 (4.23-9.07) K/mm3 RBC 4.28 L (4.63-6.08) M/mm3 Hgb 13.6 L (13.7-17.5) gm/dl Hct 40.9 (40.1-51.0) % MCV 95.6 H (79.0-92.2) fl MCH 31.8 (25.7-32.2) pg MCHC 33.3 (32.2-35.5) g/dl RDW Std Deviation 41.4 (35.1-43.9) fL Plt Count 172 (163-337) K/mm3 MPV 9.2 L (9.4-12.3) fl Neut % (Auto) 48.6 (34.0-67.9) % Lymph % (Auto) 34.3 (21.8-53.1) % [place] % (Auto) 11.7 (5.3-12.2) % Eos % (Auto) 4.8 (0.8-7.0) Baso % (Auto) 0.6 (0.1-1.2) % Neut # (Auto) 2.46 (1.78-5.38) K/mm3 Lymph # (Auto) 1.73 (1.32-3.57) K/mm3 [place] # (Auto) 0.59 (0.30-0.82) K/mm3 Eos # (Auto) 0.24 (0.04-0.54) K/mm3 Baso # (Auto) 0.03 (0.01-0.08) K/mm3 Sodium 136 (136-145) mEq/L Potassium 3.8 (3.5-5.1) mEq/L Chloride 102 (98-107) mEq/L Carbon Dioxide 26 (21-32) mEq/L Anion Gap 11.8 (5-15) BUN 13 (7-18) mg/dL Creatinine 0.9 (0.7-1.3) mg/dL Est Cr Clr Drug Dosing 99.14 mL/min Estimated GFR (MDRD) > 60 (>60) mL/min BUN/Creatinine Ratio 14.4 (14-18) Glucose 104 (74-106) mg/dL Calcium 8.6 (8.5-10.1) mg/dL Magnesium 2.1 (1.8-2.4) mg/dl Total Bilirubin 0.5 (0.2-1.0) mg/dL AST 30 (15-37) U/L ALT 44 (16-63) U/L Alkaline Phosphatase 50 (46-116) U/L Total Protein 6.7 (6.4-8.2) g/dl Albumin 3.0 L (3.4-5.0) g/dl Globulin 3.7 gm/dL Albumin/Globulin Ratio 0.8 L (1-2) Med Orders - Current: Current Medications Acetaminophen (Tylenol) 650 mg PO Q4H PRN PRN Reason: Pain (Mild 1-3)/fever Last Admin: 05/01/20 23:03 Dose: 650 mg Documented by: Albuterol/Ipratropium (Duoneb 3.0-0.5 Mg/3 Ml) 3 ml NEB Q4HRRT PRN PRN Reason: Dyspnea Last Admin: 05/02/20 08:07 Dose: 3 ml Documented by: Chlordiazepoxide HCl (Librium) 25 mg PO TID [facility] Last Admin: 05/02/20 08:20 Dose: 25 mg Documented by: Clonidine HCl (Catapres) 0.2 mg PO Q8H PRN PRN Reason: Hypertension Last Admin: 05/02/20 04:46 Dose: 0.2 mg Documented by: Docusate Sodium (Colace) 100 mg PO BID PRN PRN Reason: Constipation Enoxaparin Sodium (Lovenox) 40 mg SUBCUT DAILY [facility] Last Admin: 05/02/20 08:20 Dose: 40 mg Documented by: Folic Acid (Folic Acid) 1 mg PO BEDTIME [facility] Last Admin: 05/01/20 21:26 Dose: Not Given Documented by: Hydroxyzine HCl (Atarax) 25 mg PO DAILY [facility] Last Admin: 05/02/20 08:18 Dose: 25 mg Documented by: Lisinopril (Prinivil) 10 mg PO DAILY [facility] Last Admin: 05/02/20 08:18 Dose: 10 mg Documented by: Lorazepam (Ativan) 0 mg IVPUSH ASDIRECTED PRN; Protocol PRN Reason: Withdrawal Symptoms Last Admin: 05/01/20 19:26 Dose: 2 mg Documented by: Miscellaneous Information (Remove Patch) 1 ea TRDERM Q24H [facility] Last Admin: 05/01/20 20:12 Dose: Not Given Documented by: Nicotine (Habitrol) 21 mg TRDERM Q24H [facility] Last Admin: 05/01/20 14:32 Dose: 21 mg Documented by: Ondansetron HCl (Zofran Odt) 4 mg PO Q6H PRN PRN Reason: nausea, able to take PO Oxycodone HCl (Oxycodone) 5 mg PO Q4H PRN PRN Reason: Pain (moderate 4-6) Last Admin: 05/02/20 04:47 Dose: 5 mg Documented by: Sodium Chloride (Saline Flush) 10 ml FLUSH ASDIRECTED PRN PRN Reason: Keep Vein Open Last Admin: 04/29/20 12:00 Dose: 10 ml Documented by: Thiamine HCl (Vitamin B-1) 100 mg PO BEDTIME [facility] Last Admin: 05/01/20 21:26 Dose: Not Given Documented by: Discontinued Medications Sodium Chloride (Normal Saline) 1,000 mls @ 999 mls/hr IV NOW STA Stop: 04/29/20 12:33 Last Admin: 04/29/20 11:50 Dose: 999 mls/hr Documented by: Sodium Chloride (Normal Saline) 1,000 mls @ 150 mls/hr IV NOW STA Stop: 04/29/20 19:27 Last Infusion: 04/29/20 15:15 Dose: 125 mls/hr Documented by: Sodium Chloride (Normal Saline) 1,000 mls @ 125 mls/hr IV ASDIRECTED [facility] Last Infusion: 04/30/20 08:05 Dose: 0 mls/hr Documented by: Lorazepam (Ativan) 1 mg IVPUSH ONETIME ONE Stop: 04/29/20 11:34 Last Admin: 04/29/20 11:49 Dose: 1 mg Documented by: Lorazepam (Ativan) 1 mg IVPUSH ONETIME ONE Stop: 04/29/20 13:25 Last Admin: 04/29/20 13:49 Dose: 1 mg Documented by: Lorazepam (Ativan) 1 mg IVPUSH Q4H PRN PRN Reason: Agitation Lorazepam (Ativan) 1 mg IVPUSH ASDIRECTED PRN; Protocol PRN Reason: Agitation Lorazepam (Ativan) 2 mg IVPUSH ASDIRECTED PRN; Protocol PRN Reason: Withdrawal Symptoms Last Admin: 04/29/20 17:21 Dose: 1 mg Documented by: Morphine Sulfate (Morphine) 2 mg IVPUSH Q2H PRN PRN Reason: Pain (severe 7-10) Stop: 04/30/20 13:55 Ondansetron HCl (Zofran) 4 mg IVPUSH ONETIME ONE Stop: 04/29/20 11:34 Last Admin: 04/29/20 11:50 Dose: 4 mg Documented by: - Exam Quality Assessment: DVT Prophylaxis. No: Supplemental Oxygen General: Alert, Oriented, Cooperative HEENT: Pupils Equal, Pupils Reactive, EOMI. No: Mucous Membr. Moist/[place] (Very dry) Neck: Supple, Trachea Midline Lungs: Normal Respiratory Effort, Crackles Cardiovascular: Regular Rate, Regular Rhythm GI/Abdominal Exam: Normal Bowel Sounds, Soft, No Distention (Male) Exam: Deferred Back Exam: Normal Inspection, Full Range of Motion Extremities: Normal Inspection, No Pedal Edema Skin: Warm, Dry, Intact Neurological: No New Focal Deficit Psy/Mental Status: Alert, Normal Affect Sepsis Event Note - Evaluation Sepsis Screening Result: No Definite Risk - Focused Exam Vital Signs: Vital Signs Temp Pulse Resp BP BP Pulse Ox Pulse Ox 05/02/20 08:18 127/104 H 05/02/20 08:07 95 05/02/20 08:00 36.1 C 75 19 127/104 H 97 05/02/20 04:46 140/106 H 05/02/20 04:00 36.3 C 19 140/106 H 95 05/02/20 00:00 36.4 C 17 134/86 94 L - Problem List & Annotations (1) Alcohol withdrawal syndrome SNOMED Code(s): 367674328 Code(s): F10.239 - ALCOHOL DEPENDENCE WITH WITHDRAWAL, UNSPECIFIED Status: Acute Priority: High Current Visit: Yes Qualifiers: Complication of substance-induced condition: uncomplicated Qualified Code(s): F10.230 - Alcohol dependence with withdrawal, uncomplicated Annotation/Comment:: Improved (2) Alcohol dependence, daily use SNOMED Code(s): 845175804 Code(s): F10.20 - ALCOHOL DEPENDENCE, UNCOMPLICATED Status: Chronic Priority: High Current Visit: Yes (3) Tobacco dependence SNOMED Code(s): 46246771 Code(s): F17.200 - NICOTINE DEPENDENCE, UNSPECIFIED, UNCOMPLICATED Status: Chronic Priority: Medium Current Visit: Yes (4) Dehydration SNOMED Code(s): 80686306 Code(s): E86.0 - DEHYDRATION Status: Acute Priority: High Current Visit: Yes - Problem List Review Problem List Initiated/Reviewed/Updated: Yes - My Orders Last 24 Hours: My Active Orders 05/01/20 19:42 cloNIDine [Catapres] 0.2 mg PO Q8H PRN - Plan Plan:: The patient is a 50-year-old gentleman who will be admitted to the intensive care unit for very close monitoring. He does have severe tremors and tachycardia. The patient will be placed on CIWA protocol for alcohol withdrawal syndrome. The patient will also be kept on Ativan for possible seizure associated with alcohol withdrawal. He is currently tachycardic and will be kept on monitor. The patient is also nicotine dependent and will be afforded a nicotine patch at 21 mg daily. The patient will also have normal saline at 125 mg/h in order to help improve his dehydration. The patient also has been started on thiamine 100 mg p.o. daily and folate 1 mg daily as well as Librium 25 mg p.o. 3 times daily. Repeat laboratory studies have been ordered. The patient should be appropriate for discharge in 2 to 3 days. 04/30/2020 The patient is a 50-year-old gentleman who will continue in ICU due to his alcohol withdrawal syndrome as well as possible seizure. This is done for close monitoring. Patient still has tremors although his tachycardia has resolved. The patient's CIWA scores have been elevated and this evaluation will continue every hour. Repeat laboratory studies have been ordered. Continue to monitor vital signs and adjust as hypertensive medications as necessary. Continue with appropriate diet. Ambulation encouraged. I have also ordered a chest x-ray due to the patient's abnormal lung auscultation. Also the patient will have DuoNeb nebulizers for his wheezing. I am concerned that the patient's prospect for continued sobriety will be poor. 05/01/2020 Patient is a 50-year-old gentleman who is continuing to have severe withdrawal symptoms. His monitoring scores have been high and his requirements for Ativan have also been elevated. Today the patient has exhibited some paranoid behavior however I do not believe he is hallucinating. We will continue with the CIWA protocol. Ativan as ordered. The patient will have Librium 25 mg p.o. 3 times daily. The patient will continue to have vital signs monitored and his hypertensive medications will be adjusted accordingly. Ambulation has been encouraged. I am concerned that the patient may refuse inpatient rehabilitation and I believe that this is the patient's best option. He does have a long history of substance abuse coupled with alcohol abuse and without inpatient rehab I feel that the patient's prospects for continued sobriety will be poor. 05/02/2020 The patient is a 50-year-old gentleman who is doing better today with his acute alcohol withdrawal. His CIWA scores have been lower over the past day. Ambulation has been encouraged for the patient. He will also continue on his regular diet as tolerated. Further, the patient will continue to use the Librium 25 mg p.o. 3 times a day. I also have the patient on thiamine and folate as well. I added clonidine 0.2 mg p.o. every 8 hours as necessary for hypertensive spikes. I strongly recommend that the patient be referred to inpatient rehabilitation after acute withdrawal has been resolved. The patient at this time is indicated that he does not want rehabilitation. The patient should be appropriate for discharge in 1 to 2 days. I am concerned that if the patient is discharged without rehabilitation that his prospects for alcohol or substance abuse sobriety will be poor.
[2020-05-02] MEDS: Nicotine 21 MG/24 Hr Patch TRDERM SCH (14:42)
[2020-05-02] MEDS: Famotidine 20 MG Tab PO SCH ×2 (19:32→20:39)
[2020-05-02] MEDS: Folic Acid 1 MG Tab PO SCH ×2 (19:32→20:39)
[2020-05-02] MEDS: Thiamine 100 MG Tab PO SCH ×2 (19:32→20:39)
[2020-05-03] MEDS: cloNIDine 0.1 MG Tab PO PRN (01:24)
[2020-05-03] MEDS: oxyCODONE 5 MG Tab PO PRN ×2 (01:25→05:18)
[2020-05-03 04:35] VITALS: PULSE 63
[2020-05-03 07:59] VITALS: BP 138/73
[2020-05-03] MEDS: Famotidine 20 MG Tab PO SCH (08:00)
[2020-05-03] MEDS: Lisinopril 10 MG Tab PO SCH (08:01)
[2020-05-03] MEDS: chlordiazePOXIDE 25 MG Cap PO SCH (08:02)
[2020-05-03] MEDS: hydrOXYzine HCl 25 MG Tab PO SCH (08:02)
[2020-05-03] MEDS: Enoxaparin 40 MG/0.4 ML Syringe SUBCUT SCH (08:03)
--- NOTE | 2020-05-03 08:49 | PCM.DCSUM1 ---
Discharge Summary - Hospital Course HPI Initial Comments: The patient is a 50-year-old gentleman who has presented to the emergency department out of concern for alcohol withdrawal. The patient reports that he was laid off from work several months ago and has been drinking heavily. The patient reports that he has been drinking at least 24 beers per day in addition to hard liquor. The patient also says that he has been drinking in the morning to help with his shakes and tremors. The patient has denied any withdrawal seizures. The patient also says that he has quit drinking in order to clean up because he got called back into work. 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 The patient says that his last drink was approximately 2 days ago. The patient has denied any pain. He had some vomiting this morning. The patient also uses tobacco. He does take medication for hypertension. The patient has been in his usual state of health up until the present time. Assessment plan The patient is a 50-year-old gentleman who will be admitted to the intensive care unit for very close monitoring. He does have severe tremors and tachycardia. The patient will be placed on CIWA protocol for alcohol withdrawal syndrome. The patient will also be kept on Ativan for possible seizure associated with alcohol withdrawal. He is currently tachycardic and will be kept on monitor. The patient is also nicotine dependent and will be afforded a nicotine patch at 21 mg daily. The patient will also have normal saline at 125 mg/h in order to help improve his dehydration. The patient also has been started on thiamine 100 mg p.o. daily and folate 1 mg daily as well as Librium 25 mg p.o. 3 times daily. Repeat laboratory studies have been ordered. The patient should be appropriate for discharge in 2 to 3 days. Diagnosis: Stroke: No - Discharge Data Discharge Date: 05/03/20 Discharge Disposition: Home, Self-Care 01 Condition: Good - Referral to Home Health Primary Care Physician: Merry Torres PA-C - Patient Summary/Data Consults: Consultations 05/01/20 07:22 Consult to Physician [CONS] Routine Hospital Course: 04/30/2020 The patient is a 50-year-old gentleman who will continue in ICU due to his alcohol withdrawal syndrome as well as possible seizure. This is done for close monitoring. Patient still has tremors although his tachycardia has resolved. The patient's CIWA scores have been elevated and this evaluation will continue every hour. Repeat laboratory studies have been ordered. Continue to monitor vital signs and adjust as hypertensive medications as necessary. Continue with appropriate diet. Ambulation encouraged. I have also ordered a chest x-ray due to the patient's abnormal lung auscultation. Also the patient will have DuoNeb nebulizers for his wheezing. I am concerned that the patient's prospect for continued sobriety will be poor. 05/01/2020 Patient is a 50-year-old gentleman who is continuing to have severe withdrawal symptoms. His monitoring scores have been high and his requirements for Ativan have also been elevated. Today the patient has exhibited some paranoid behavior however I do not believe he is hallucinating. We will continue with the CIWA protocol. Ativan as ordered. The patient will have Librium 25 mg p.o. 3 times daily. The patient will continue to have vital signs monitored and his hypertensive medications will be adjusted accordingly. Ambulation has been encouraged. I am concerned that the patient may refuse inpatient rehabilitation and I believe that this is the patient's best option. He does have a long history of substance abuse coupled with alcohol abuse and without inpatient rehab I feel that the patient's prospects for continued sobriety will be poor. 05/02/2020 The patient is a 50-year-old gentleman who is doing better today with his acute alcohol withdrawal. His CIWA scores have been lower over the past day. Ambulation has been encouraged for the patient. He will also continue on his regular diet as tolerated. Further, the patient will continue to use the Librium 25 mg p.o. 3 times a day. I also have the patient on thiamine and folate as well. I added clonidine 0.2 mg p.o. every 8 hours as necessary for hypertensive spikes. I strongly recommend that the patient be referred to inpatient rehabilitation after acute withdrawal has been resolved. The patient at this time is indicated that he does not want rehabilitation. The patient should be appropriate for discharge in 1 to 2 days. I am concerned that if the patient is discharged without rehabilitation that his prospects for alcohol or substance abuse sobriety will be poor. 05/03/2020 Patient continues to do better. His CIWA score did go up to 7 but this was likely secondary to a bad dream. He is ambulating in the [facility] and he is requesting to go home. He has a appointment [facility] tomorrow at 8 AM. Patient should do well with the withdrawal symptoms since Librium has since a long half-life. - Patient Instructions Diet: Heart Healthy Diet, No Alcoholic Beverages Activity: As Tolerated Driving: Do Not Drive Showering/Bathing: May Shower Notify Provider of: Nausea and/or Vomiting Other/Special Instructions: Follow-up with your primary care provider within a week. - Discharge Plan *PRESCRIPTION DRUG MONITORING PROGRAM REVIEWED*: No *COPY OF PRESCRIPTION DRUG MONITORING REPORT IN PATIENT ADRIANE: No Prescriptions/Med Rec: Nicotine [Habitrol] 21 mg TRDERM Q24H #30 patch Thiamine [Vitamin B-1] 100 mg PO BEDTIME #30 tablet Home Medications: Home Meds Escitalopram [Lexapro] 10 mg PO DAILY 04/29/20 [History] hydrOXYzine HCL [Hydroxyzine HCl] 25 mg PO DAILY 04/29/20 [History] lisinopriL [Lisinopril] 10 mg PO DAILY 04/29/20 [History] Nicotine [Habitrol] 21 mg TRDERM Q24H #30 patch 05/03/20 [Rx] Remove Patch 1 ea TRDERM Q24H each 05/03/20 [Rx] Thiamine [Vitamin B-1] 100 mg PO BEDTIME #30 tablet 05/03/20 [Rx] Patient Handouts: Alcohol Withdrawal Syndrome, Steps to Quit Smoking Forms: ED Department Discharge Referrals: Merry Torres PA-C [Primary Care Provider] - Agatha Chávez RN [Registered Nurse] - 05/12/20 12:45 pm (this appt. is with smoking cessation at [facility], please arrive at 12:45 for check in appt. is at 1 pm. If you need to rescheule please call.) - Discharge Summary/Plan Comment DC Time >30 min.: Yes - General Info Date of Service: 05/03/20 Admission Dx/Problem (Free Text: Admission Diagnosis/Problem Admission Diagnosis/Problem Alcohol withdrawal syndrome Subjective Update: Patient states he is doing well. No nausea or vomiting. Functional Status: Reports: Pain Controlled - Review of Systems General: Reports: No Symptoms HEENT: Reports: No Symptoms Pulmonary: Reports: No Symptoms Cardiovascular: Reports: No Symptoms Gastrointestinal: Reports: No Symptoms Musculoskeletal: Reports: No Symptoms Neurological: Reports: No Symptoms Psychiatric: Reports: No Symptoms - Patient Data Vitals - Most Recent: Last Vital Signs Temp 97.1 F 05/03/20 07:58 Pulse 63 05/03/20 04:00 Resp 18 05/03/20 07:58 BP 138/73 05/03/20 08:01 Pulse Ox 100 05/03/20 07:58 Weight - Most Recent: 209 lb 3.2 oz I&O - Last 24 hours: Intake & Output 05/02/20 05/03/20 05/03/20 22:59 06:59 14:59 Intake Total 1300 600 Output Total 1100 Balance 1300 -500 Lab Results - Last 24 hrs: Laboratory Results - last 24 hr 05/03/20 05/03/20 Range/Units 04:45 04:45 WBC 6.06 (4.23-9.07) K/mm3 RBC 4.25 L (4.63-6.08) M/mm3 Hgb 13.7 (13.7-17.5) gm/dl Hct 40.4 (40.1-51.0) % MCV 95.1 H (79.0-92.2) fl MCH 32.2 (25.7-32.2) pg MCHC 33.9 (32.2-35.5) g/dl RDW Std Deviation 41.4 (35.1-43.9) fL Plt Count 176 (163-337) K/mm3 MPV 9.3 L (9.4-12.3) fl Neut % (Auto) 56.5 (34.0-67.9) % Lymph % (Auto) 27.9 (21.8-53.1) % [place] % (Auto) 10.1 (5.3-12.2) % Eos % (Auto) 4.3 (0.8-7.0) Baso % (Auto) 1.0 (0.1-1.2) % Neut # (Auto) 3.43 (1.78-5.38) K/mm3 Lymph # (Auto) 1.69 (1.32-3.57) K/mm3 [place] # (Auto) 0.61 (0.30-0.82) K/mm3 Eos # (Auto) 0.26 (0.04-0.54) K/mm3 Baso # (Auto) 0.06 (0.01-0.08) K/mm3 Sodium 140 (136-145) mEq/L Potassium 3.8 (3.5-5.1) mEq/L Chloride 104 (98-107) mEq/L Carbon Dioxide 26 (21-32) mEq/L Anion Gap 13.8 (5-15) BUN 13 (7-18) mg/dL Creatinine 0.9 (0.7-1.3) mg/dL Est Cr Clr Drug Dosing 99.14 mL/min Estimated GFR (MDRD) > 60 (>60) mL/min BUN/Creatinine Ratio 14.4 (14-18) Glucose 105 (74-106) mg/dL Calcium 8.7 (8.5-10.1) mg/dL Magnesium 2.0 (1.8-2.4) mg/dl Total Bilirubin 0.5 (0.2-1.0) mg/dL AST 37 (15-37) U/L ALT 56 (16-63) U/L Alkaline Phosphatase 49 (46-116) U/L Total Protein 6.8 (6.4-8.2) g/dl Albumin 3.1 L (3.4-5.0) g/dl Globulin 3.7 gm/dL Albumin/Globulin Ratio 0.8 L (1-2) Med Orders - Current: Current Medications Acetaminophen (Tylenol) 650 mg PO Q4H PRN PRN Reason: Pain (Mild 1-3)/fever Last Admin: 05/01/20 23:03 Dose: 650 mg Documented by: Albuterol/Ipratropium (Duoneb 3.0-0.5 Mg/3 Ml) 3 ml NEB Q4HRRT PRN PRN Reason: Dyspnea Last Admin: 05/02/20 16:53 Dose: 3 ml Documented by: Chlordiazepoxide HCl (Librium) 25 mg PO TID JOANNA Last Admin: 05/03/20 08:02 Dose: 25 mg Documented by: Clonidine HCl (Catapres) 0.2 mg PO Q8H PRN PRN Reason: Hypertension Last Admin: 05/03/20 01:24 Dose: 0.2 mg Documented by: Docusate Sodium (Colace) 100 mg PO BID PRN PRN Reason: Constipation Enoxaparin Sodium (Lovenox) 40 mg SUBCUT DAILY [facility] Last Admin: 05/03/20 08:03 Dose: 40 mg Documented by: Famotidine (Pepcid) 20 mg PO BID [facility] Last Admin: 05/03/20 08:00 Dose: 20 mg Documented by: Folic Acid (Folic Acid) 1 mg PO BEDTIME [facility] Last Admin: 05/02/20 20:39 Dose: Not Given Documented by: Hydroxyzine HCl (Atarax) 25 mg PO DAILY [facility] Last Admin: 05/03/20 08:02 Dose: 25 mg Documented by: Lisinopril (Prinivil) 10 mg PO DAILY [facility] Last Admin: 05/03/20 08:01 Dose: 10 mg Documented by: Lorazepam (Ativan) 0 mg IVPUSH ASDIRECTED PRN; Protocol PRN Reason: Withdrawal Symptoms Last Admin: 05/01/20 19:26 Dose: 2 mg Documented by: Miscellaneous Information (Remove Patch) 1 ea TRDERM Q24H [facility] Last Admin: 05/02/20 14:43 Dose: 1 ea Documented by: Nicotine (Habitrol) 21 mg TRDERM Q24H [facility] Last Admin: 05/02/20 14:42 Dose: 21 mg Documented by: Ondansetron HCl (Zofran Odt) 4 mg PO Q6H PRN PRN Reason: nausea, able to take PO Oxycodone HCl (Oxycodone) 5 mg PO Q4H PRN PRN Reason: Pain (moderate 4-6) Last Admin: 05/03/20 05:18 Dose: 5 mg Documented by: Sodium Chloride (Saline Flush) 10 ml FLUSH ASDIRECTED PRN PRN Reason: Keep Vein Open Last Admin: 04/29/20 12:00 Dose: 10 ml Documented by: Thiamine HCl (Vitamin B-1) 100 mg PO BEDTIME [facility] Last Admin: 05/02/20 20:39 Dose: Not Given Documented by: Discontinued Medications Sodium Chloride (Normal Saline) 1,000 mls @ 999 mls/hr IV NOW STA Stop: 04/29/20 12:33 Last Admin: 04/29/20 11:50 Dose: 999 mls/hr Documented by: Sodium Chloride (Normal Saline) 1,000 mls @ 150 mls/hr IV NOW STA Stop: 04/29/20 19:27 Last Infusion: 04/29/20 15:15 Dose: 125 mls/hr Documented by: Sodium Chloride (Normal Saline) 1,000 mls @ 125 mls/hr IV ASDIRECTED JOANNA Last Infusion: 04/30/20 08:05 Dose: 0 mls/hr Documented by: Lorazepam (Ativan) 1 mg IVPUSH ONETIME ONE Stop: 04/29/20 11:34 Last Admin: 04/29/20 11:49 Dose: 1 mg Documented by: Lorazepam (Ativan) 1 mg IVPUSH ONETIME ONE Stop: 04/29/20 13:25 Last Admin: 04/29/20 13:49 Dose: 1 mg Documented by: Lorazepam (Ativan) 1 mg IVPUSH Q4H PRN PRN Reason: Agitation Lorazepam (Ativan) 1 mg IVPUSH ASDIRECTED PRN; Protocol PRN Reason: Agitation Lorazepam (Ativan) 2 mg IVPUSH ASDIRECTED PRN; Protocol PRN Reason: Withdrawal Symptoms Last Admin: 04/29/20 17:21 Dose: 1 mg Documented by: Morphine Sulfate (Morphine) 2 mg IVPUSH Q2H PRN PRN Reason: Pain (severe 7-10) Stop: 04/30/20 13:55 Ondansetron HCl (Zofran) 4 mg IVPUSH ONETIME ONE Stop: 04/29/20 11:34 Last Admin: 04/29/20 11:50 Dose: 4 mg Documented by: - Exam General: Reports: Alert, Oriented HEENT: Reports: Pupils Equal, Pupils Reactive, EOMI, Mucous Membr. Moist/[place] Neck: Reports: Supple Lungs: Reports: Normal Respiratory Effort, Wheezing Cardiovascular: Reports: Regular Rate, Regular Rhythm GI/Abdominal Exam: Normal Bowel Sounds, Soft, Non-Tender, No Distention, No Abnormal Bruit Back Exam: Reports: Normal Inspection, Full Range of Motion Extremities: Normal Inspection, Normal Range of Motion, Non-Tender, No Pedal Edema, Normal Capillary Refill Psy/Mental Status: Reports: Alert, Normal Affect, Normal Mood
== END 2020-05-03 09:12 | disposition home or self-care (01) | DRG 897 ==
LOC: JD.ED 11:06 → JD.ICU 13:45
PROVIDERS: ADMIT Internal Medicine; ATTEND Family Medicine
DX: F10.230 Alcohol dependence with withdrawal, uncomplicated (principal); F17.200 Nicotine dependence, unspecified, uncomplicated; E86.0 Dehydration; R56.9 Unspecified convulsions; I12.9 Hypertensive chronic kidney disease with stage 1 through stage 4 chronic kidney disease, or unspecified chronic kidney disease; N18.9 Chronic kidney disease, unspecified; F41.0 Panic disorder [episodic paroxysmal anxiety]; E66.9 Obesity, unspecified; R00.0 Tachycardia, unspecified; Z20.822 Contact with and (suspected) exposure to COVID-19; Z88.0 Allergy status to penicillin; Z88.1 Allergy status to other antibiotic agents; Z91.030 Bee allergy status; Z91.041 Radiographic dye allergy status; Z79.899 Other long term (current) drug therapy; Z68.30 Body mass index [BMI] 30.0-30.9, adult
CPT/HCPCS: 36415; 71045; 71045-26; 76705; 76705-26; 80053; 80061; 80179; 80306; 81001; 83690; 83735; 85025; 86140; 94640; 96374; 96375; 96376; 99222; 99231; 99232; 99239; 99284; 99285-25; A9270-GY; J1650; J2060; J2405; J7030; J7620-GY; U0002

== ENCOUNTER 2021-02-22 17:45 | Emergency (ER) | payer OTHER ==
[2021-02-22 18:01] VITALS: BP 154/99; PULSE 95
[2021-02-22] MEDS ORDERED: Sodium Chloride 0.9% 10 ML Syringe FLUSH PRN (18:25)
--- NOTE | 2021-02-22 18:32 | EDM.PDOC ---
ED HPI GENERAL MEDICAL PROBLEM - General Chief Complaint: Chest Pain Stated Complaint: CHEST PAIN/ FEVER/ Time Seen by Provider: 02/22/21 17:49 Source of Information: Reports: Patient History Limitations: Reports: No Limitations - History of Present Illness INITIAL COMMENTS - FREE TEXT/NARRATIVE: 50-year-old male presents to the emergency department today with complaints of 1 week history of shortness of breath, cough, chest discomfort, decreased appetite, generalized body aches, fever, headache, nausea without vomiting and diarrhea. Patient also states that approximately 1 week ago he cut his right heel on the step of his home and has noted increased redness warmth and drainage from the area. Patient has a $0.50 sized area of avulsion noted to his right heel. Patient also admits to being a heavy drinker drinking 1/5 of whiskey per day has been doing this daily for the past 6 months. He states his last drink was this afternoon. Also smokes a pack a day for the past 20+ years. Denies receiving his Covid vaccination this year. Chest Pain Score (Numeric/FACES): 9 Right Foot Pain Score (Numeric/FACES): 9 - Related Data Allergies Allergy/AdvReac Type Severity Reaction Status Date / Time amoxicillin Allergy Rash Verified 02/22/21 18:00 Iodinated Contrast Media Allergy Rash Verified 02/22/21 18:00 [Iodinated Contrast- Oral and IV Dye] Penicillins Allergy Rash Verified 02/22/21 18:00 venom-honey bee Allergy Shortness Verified 02/22/21 18:00 of Breath levofloxacin [From Levaquin] AdvReac Itching Verified 02/22/21 18:00 Home Meds: Home Meds . [No Known Home Meds] 02/22/21 [History] Past Medical History HEENT History: Reports: None Cardiovascular History: Reports: Hypertension Respiratory History: Reports: Pneumothorax Other Respiratory History: states had several stabs wounds to chest with chest tube placement. Other Gastrointestinal History: Right inguinal hernia Genitourinary History: Reports: Chronic Renal Insuffiency Musculoskeletal History: Reports: Fracture, Gout Other Musculoskeletal History: Herniated disc in lower back. Neurological History: Reports: Head Trauma Psychiatric History: Reports: Addiction, Anxiety, Panic Attack Endocrine/Metabolic History: Reports: Obesity/BMI 30+ Hematologic History: Reports: Blood Transfusion(s) Immunologic History: Reports: None Oncologic (Cancer) History: Reports: None Dermatologic History: Reports: None - Infectious Disease History Infectious Disease History: Reports: MRSA - Past Surgical History HEENT Surgical History: Reports: None Respiratory Surgical History: Reports: Other (See Below) GI Surgical History: Reports: Hernia, Inguinal Other GI Surgeries/Procedures: Right inguinal hernia repair Musculoskeletal Surgical History: Reports: ORIF Other Musculoskeletal Surgeries/Procedures:: L) foot surgery for Fx'd bones. 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 ED EXAM, GENERAL - Physical Exam Exam: See Below Exam Limited By: No Limitations General Appearance: Alert, WD/WN, No Apparent Distress Ears: Normal External Exam, Hearing Grossly Normal Nose: Normal Inspection Throat/Mouth: Normal Inspection, Normal Lips, Normal Voice, No Airway Compromise Head: Atraumatic, Normocephalic Neck: Normal Inspection, Supple Respiratory/Chest: No Respiratory Distress, No Accessory Muscle Use, Chest Non- Tender, Crackles, Wheezing (Ankles noted bilaterally inspiratory and expiratory bilaterally) Cardiovascular: Normal Peripheral Pulses, Regular Rate, Rhythm, No Edema, No Murmur Peripheral Pulses: 2+: Radial (L), Radial (R) GI/Abdominal: Normal Bowel Sounds, Soft, Non-Tender, No Distention (Male) Exam: Deferred Rectal (Males) Exam: Deferred Back Exam: Normal Inspection Extremities: Normal Range of Motion, No Pedal Edema, Normal Capillary Refill (Right heel tenderness), Other (Avulsion noted to right heel). No: Non-Tender Neurological: Alert, Oriented, Normal Cognition Psychiatric: Normal Affect, Normal Mood Skin Exam: Warm, Dry, Normal Color, No Rash, Wound/Incision (Avulsion noted to right heel approximately the size of $0.50 piece) Lymphatic: No Adenopathy #1 Interpretation EKG Date: 02/22/21 Time: 17:55 Rhythm: NSR Rate (Beats/Min): 96 Rush: Normal P-Wave: Present QRS: Normal ST-T: Normal QT: Normal EKG Interpretation Comments: Per Dr. Arevalo interpretation: Sinus rhythm at 96 bpm; left axis deviation; abnormal R wave progression, late transition; ST elevation, probable normal early repolarization pattern. Course - Vital Signs Text/Narrative:: As stated above patient presents with numerous symptoms. Physical exam reveals a flushed male. O2 saturations are 96% on room air. He is afebrile and blood pressure is elevated at 154/99. Heart rate is 95. Lung sounds with crackles noted bilaterally with inspiratory and expiratory wheezes. Abdomen is soft and nontender. Area of an avulsion proximately size of a $0.50 piece noted to right heel. Area is pink and moist and does not appear to be having any active drainage. Will obtain a Covid swab on the patient as well as lab studies to include a CBC, CMP, C-reactive protein, magnesium level, D-dimer, blood alcohol, salicylate, acetaminophen level, urine drug screen, and culture of wound to right heel. Also obtain an EKG and a portable chest x-ray. Last Recorded V/S: Last Vital Signs Temp 95.7 F L 02/22/21 17:58 Pulse 95 02/22/21 17:58 Resp 20 02/22/21 17:58 BP 154/99 H 02/22/21 17:58 Pulse Ox 95 02/22/21 17:58 - Orders/Labs/Meds Orders: Active Orders 24 hr Category Date Time Status CULTURE, ANAEROBE & AEROBE [MREF] Stat Lab 02/22/21 19:00 Received DRUG SCREEN, URINE [URCHEM] Stat Lab 02/22/21 18:25 Ordered Sodium Chloride 0.9% [Saline Flush] Med 02/22/21 18:25 Active 10 ml FLUSH ASDIRECTED PRN Saline Lock Insert [OM.PC] Stat Oth 02/22/21 18:25 Ordered Medication Orders Sodium Chloride (Sodium Chloride 0.9% 10 Ml Syringe) 10 ml FLUSH ASDIRECTED PRN PRN Reason: Keep Vein Open Last Admin: 02/22/21 18:40 Dose: 10 ml Documented by: COOKIE Labs: Laboratory Tests 02/22/21 02/22/21 02/22/21 Range/Units 18:40 18:40 18:40 WBC 5.92 (4.23-9.07) K/mm3 RBC 4.95 (4.63-6.08) M/mm3 Hgb 16.3 (13.7-17.5) gm/dl Hct 46.5 (40.1-51.0) % MCV 93.9 H (79.0-92.2) fl MCH 32.9 H (25.7-32.2) pg MCHC 35.1 (32.2-35.5) g/dl RDW Std Deviation 45.1 H (35.1-43.9) fL Plt Count 223 (163-337) K/mm3 MPV 9.1 L (9.4-12.3) fl Neut % (Auto) 50.0 (34.0-67.9) % Lymph % (Auto) 33.4 (21.8-53.1) % [place] % (Auto) 10.5 (5.3-12.2) % Eos % (Auto) 4.9 (0.8-7.0) Baso % (Auto) 1.0 (0.1-1.2) % Neut # (Auto) 2.96 (1.78-5.38) K/mm3 Lymph # (Auto) 1.98 (1.32-3.57) K/mm3 [place] # (Auto) 0.62 (0.30-0.82) K/mm3 Eos # (Auto) 0.29 (0.04-0.54) K/mm3 Baso # (Auto) 0.06 (0.01-0.08) K/mm3 D-Dimer, Quantitative 0.41 (0.19-0.50) mg/L Sodium 140 (136-145) mEq/L Potassium 4.3 (3.5-5.1) mEq/L Chloride 104 (98-107) mEq/L Carbon Dioxide 26 (21-32) mEq/L Anion Gap 14.3 (5-15) BUN 15 (7-18) mg/dL Creatinine 1.0 (0.7-1.3) mg/dL Est Cr Clr Drug Dosing 89.22 mL/min Estimated GFR (MDRD) > 60 (>60) mL/min BUN/Creatinine Ratio 15.0 (14-18) Glucose 108 H (70-99) mg/dL Calcium 8.2 L (8.5-10.1) mg/dL Magnesium 2.2 (1.8-2.4) mg/dL Total Bilirubin 0.3 (0.2-1.0) mg/dL AST 38 H (15-37) U/L ALT 42 (16-63) U/L Alkaline Phosphatase 78 (46-116) U/L C-Reactive Protein <0.2 (<1.0) mg/dL Total Protein 7.6 (6.4-8.2) g/dl Albumin 3.7 (3.4-5.0) g/dl Globulin 3.9 gm/dL Albumin/Globulin Ratio 1.0 (1-2) TSH 3rd Generation 2.854 (0.358-3.74) uIU/mL Salicylates (2.8-20) mg/dL Acetaminophen 0 L (10-30) ug/mL Ethyl Alcohol 0.33 (0.00) gm% SARS-CoV-2 RNA (EMMANUEL) (NEGATIVE) 02/22/21 02/22/21 Range/Units 18:40 19:00 WBC (4.23-9.07) K/mm3 RBC (4.63-6.08) M/mm3 Hgb (13.7-17.5) gm/dl Hct (40.1-51.0) % MCV (79.0-92.2) fl MCH (25.7-32.2) pg MCHC (32.2-35.5) g/dl RDW Std Deviation (35.1-43.9) fL Plt Count (163-337) K/mm3 MPV (9.4-12.3) fl Neut % (Auto) (34.0-67.9) % Lymph % (Auto) (21.8-53.1) % [place] % (Auto) (5.3-12.2) % Eos % (Auto) (0.8-7.0) Baso % (Auto) (0.1-1.2) % Neut # (Auto) (1.78-5.38) K/mm3 Lymph # (Auto) (1.32-3.57) K/mm3 [place] # (Auto) (0.30-0.82) K/mm3 Eos # (Auto) (0.04-0.54) K/mm3 Baso # (Auto) (0.01-0.08) K/mm3 D-Dimer, Quantitative (0.19-0.50) mg/L Sodium (136-145) mEq/L Potassium (3.5-5.1) mEq/L Chloride (98-107) mEq/L Carbon Dioxide (21-32) mEq/L Anion Gap (5-15) BUN (7-18) mg/dL Creatinine (0.7-1.3) mg/dL Est Cr Clr Drug Dosing mL/min Estimated GFR (MDRD) (>60) mL/min BUN/Creatinine Ratio (14-18) Glucose (70-99) mg/dL Calcium (8.5-10.1) mg/dL Magnesium (1.8-2.4) mg/dL Total Bilirubin (0.2-1.0) mg/dL AST (15-37) U/L ALT (16-63) U/L Alkaline Phosphatase (46-116) U/L C-Reactive Protein (<1.0) mg/dL Total Protein (6.4-8.2) g/dl Albumin (3.4-5.0) g/dl Globulin gm/dL Albumin/Globulin Ratio (1-2) TSH 3rd Generation (0.358-3.74) uIU/mL Salicylates 4.4 (2.8-20) mg/dL Acetaminophen (10-30) ug/mL Ethyl Alcohol (0.00) gm% SARS-CoV-2 RNA (EMMANUEL) Negative (NEGATIVE) Meds: Medications Generic Name Dose Route Start Last Admin Trade Name Freq PRN Reason Stop Dose Admin Sodium Chloride 10 ml 02/22/21 18:25 02/22/21 18:40 Sodium Chloride 0.9% 10 Ml Syringe FLUSH 10 ml ASDIRECTED PRN Administration Keep Vein Open - Re-Assessments/Exams Free Text/Narrative Re-Assessment/Exam: 02/22/21 19:31 Radiologist impression frontal view of the chest: Stable granulomas noted within the right upper chest. Linear densities are seen within the left mid to lower lung compatible with atelectasis. Vertical linear density is seen in the same area which is compatible with scarring. Lungs otherwise are clear. Heart is slightly enlarged. Upper mediastinum is normal. Bony structures show nothing acute. Impression: 1. Slight atelectasis within the left mid to lower lung. Scarring in the same area which is described above. 2. Heart may be slightly enlarged. 3. Frantz right upper lobe granuloma 02/22/21 21:05 Hematology is essentially unremarkable, WBC 5.19 Coagulation reveals a D-dimer of 0.41 Chemistry is essentially unremarkable other than glucose of 108, calcium 8.2, AST 38 and an ALT of 42, C-reactive protein less than 0.2, TSH 2.854 Toxicology reveals a salicylate level 4.4, acetaminophen 0, ethyl alcohol 0.33 Serology reveals patient is Covid negative. Patient will be discharged to home. Wound cultures are pending and will be called to patient if he is needing antibiotics. Patient likely has viral infection. Departure - Departure Time of Disposition: 21:05 Disposition: Home, Self-Care 01 Condition: Good Clinical Impression: Viral illness Alcohol intoxication Qualifiers: Complication of substance-induced condition: uncomplicated Qualified Code(s): F10.920 - Alcohol use, unspecified with intoxication, uncomplicated Abrasion of right heel Qualifiers: Encounter type: initial encounter Qualified Code(s): S90.811A - Abrasion, right foot, initial encounter - Discharge Information Instructions: Viral Illness, Adult Referrals: PCP,None [Primary Care Provider] - Forms: ED Department Discharge Additional Instructions: You were seen in the emergency department this evening with symptoms consistent with Covid however Covid swab was completed and this was negative. Lab studies were also completed and do not show any sign of infection. Cultures were taken of your wound to see if any infective bacteria grows out. If you need to be started on an antibiotic, we will call you. Recommend soaking your foot and hot Epson salt water 3 times daily and then covering with bandage. Watch for signs of increased redness, warmth, swelling or pus. Recommend follow-up with your primary care provider in about 1 week. Should your condition worsen or change, do not hesitate returning to the emergency department. Sepsis Event Note (ED) - Evaluation Sepsis Screening Result: No Definite Risk - Focused Exam Vital Signs: Vital Signs Temp Pulse Resp BP Pulse Ox 02/22/21 17:58 95.7 F L 95 20 154/99 H 95 - My Orders Last 24 Hours: My Active Orders 02/22/21 18:25 DRUG SCREEN, URINE [URCHEM] Stat Sodium Chloride 0.9% [Saline Flush] 10 ml FLUSH ASDIRECTED PRN Saline Lock Insert [OM.PC] Stat 02/22/21 19:00 CULTURE, ANAEROBE & AEROBE [MREF] Stat - Assessment/Plan Last 24 Hours: My Active Orders 02/22/21 18:25 DRUG SCREEN, URINE [URCHEM] Stat Sodium Chloride 0.9% [Saline Flush] 10 ml FLUSH ASDIRECTED PRN Saline Lock Insert [OM.PC] Stat 02/22/21 19:00 CULTURE, ANAEROBE & AEROBE [MREF] Stat
--- NOTE | 2021-02-22 19:10 | CR ---
Chest: Frontal view of the chest was obtained. Comparison: Prior chest x-ray of 04/30/20. Stable granuloma is noted within the right upper chest. Linear densities are seen within the left mid to lower lung compatible with atelectasis. Vertical linear density is seen in the same area which is compatible with scarring. Lungs otherwise are clear. Heart is slightly enlarged. Upper mediastinum is normal. Bony structures show nothing acute. Impression: 1. Slight atelectasis within the left mid to lower lung. Scarring in the same area which is described above. 2. Heart may be slightly enlarged. 3. Stable right upper lobe granuloma. Diagnostic code #2
[2021-02-22 19:44] LABS: ACETAMINOPHEN 0 ug/mL (10-30)
== END 2021-02-22 22:04 | disposition home or self-care (01) ==
LOC: JD.ED 17:45
DX: S90.811A Abrasion, right foot, initial encounter (principal); B34.9 Viral infection, unspecified; F10.129 Alcohol abuse with intoxication, unspecified; I12.9 Hypertensive chronic kidney disease with stage 1 through stage 4 chronic kidney disease, or unspecified chronic kidney disease; N18.9 Chronic kidney disease, unspecified; M10.9 Gout, unspecified; E66.9 Obesity, unspecified; Z68.30 Body mass index [BMI] 30.0-30.9, adult; Z88.0 Allergy status to penicillin; Z88.1 Allergy status to other antibiotic agents; Z91.041 Radiographic dye allergy status; Z79.899 Other long term (current) drug therapy; Z72.0 Tobacco use; Z20.822 Contact with and (suspected) exposure to COVID-19; X58.XXXA Exposure to other specified factors, initial encounter; Y92.009 Unspecified place in unspecified non-institutional (private) residence as the place of occurrence of the external cause
CPT/HCPCS: 36415; 71045; 71045-26; 80053; 80143; 80179; 80307; 83735; 84443; 85025; 85379; 86140; 87070; 87075; 87205; 93005; 93010; 99284; 99285-25; U0002

== ENCOUNTER 2021-03-25 20:41 | Emergency (ER) | payer OTHER ==
[2021-03-25 20:49] VITALS: BP 138/86; PULSE 84
[2021-03-25] MEDS ORDERED: Sodium Chloride 0.9% 10 ML Syringe FLUSH PRN (20:54)
[2021-03-25] MEDS ORDERED: Sodium Chloride 0.9% 1,000 ML IV ONE ×2 (20:54→22:18)
--- NOTE | 2021-03-25 20:57 | EDM.PDOCBH ---
<Donaldo Yanes - Last Filed: 03/26/21 06:29> ED HPI GENERAL MEDICAL PROBLEM - General Chief Complaint: Drug or Alcohol Abuse Stated Complaint: LUIS FERNANDO AMB Time Seen by Provider: 03/25/21 20:48 - Related Data Allergies Allergy/AdvReac Type Severity Reaction Status Date / Time amoxicillin Allergy Rash Verified 03/25/21 20:49 Iodinated Contrast Media Allergy Rash Verified 03/25/21 20:49 [Iodinated Contrast- Oral and IV Dye] levofloxacin [From Levaquin] Allergy Itching Verified 03/28/21 11:54 Penicillins Allergy Rash Verified 03/25/21 20:49 venom-honey bee Allergy Shortness Verified 03/25/21 20:49 of Breath Home Meds: Home Meds . [No Known Home Meds] 02/22/21 [History] COURSE, BEHAVIORAL HEALTH COMP - Course Medical Clearance: 03/26/21 06:30 The patient slept soundly overnight. He is now awake. I will discharge him home. Departure - Departure Time of Disposition: 06:30 Disposition: Home, Self-Care 01 Condition: Good Clinical Impression: Alcoholism Alcohol intoxication Qualifiers: Complication of substance-induced condition: uncomplicated Qualified Code(s): F10.920 - Alcohol use, unspecified with intoxication, uncomplicated - Discharge Information *PRESCRIPTION DRUG MONITORING PROGRAM REVIEWED*: Not Applicable *COPY OF PRESCRIPTION DRUG MONITORING REPORT IN PATIENT ADRIANE: Not Applicable Instructions: Alcohol Intoxication, [id number] Referrals: PCP,None [Primary Care Provider] - Forms: ED Department Discharge Additional Instructions: You were brought to the emergency room by paramedics after drinking heavily last night. Work-up in the ER included numerous blood tests and a urine drug screen. Your alcohol level was found to be substantially elevated at 0.37. You reported that you had taken several tablets of OxyContin, however, we found no evidence for that. You were given IV fluid in the ER. We strongly recommend that you follow-up with [facility] to get control of your alcoholism: [address] Aram Ramos [phone] If any other problems, please do not hesitate to return to the ER. <Gris Molina - Last Filed: 03/30/21 19:01> ED HPI GENERAL MEDICAL PROBLEM - General Source of Information: Reports: Patient History Limitations: Reports: No Limitations, Other (ED vital signs reveal a temp of 97.4, pulse of 84, respiratory rate of 18, blood pressure 138/86, pulse ox 97% on room air.) - History of Present Illness INITIAL COMMENTS - FREE TEXT/NARRATIVE: 51-year-old male presents the emergency department via [facility] due to alcohol intoxication. This patient is well-known to this emergency department and has had numerous visits for similar instances. Patient states he has drank 2-0.75 ounce bottles of whiskey today +2 beers. He states he then took 4 OxyContin tablets due to back pain. He does not know the dosages of the OxyContin tabs and he states that they were not prescribed to him. Patient states that the back pain has resolved once he arrived in the emergency department. States he does smoke 2 packs of cigarettes per day for the past 30+ years. Patient does not admit to having a primary care provider and states he does not take any prescription medications. Patient is severely intoxicated at the time he arrives in the emergency department. He is slurring his words and at times is difficult to understand however he is awake and alert. Physical exam is otherwise unremarkable. Past Medical History HEENT History: Reports: None Cardiovascular History: Reports: Hypertension Respiratory History: Reports: Pneumothorax Other Respiratory History: states had several stabs wounds to chest with chest tube placement. Other Gastrointestinal History: Right inguinal hernia Genitourinary History: Reports: Chronic Renal Insuffiency Musculoskeletal History: Reports: Fracture, Gout Other Musculoskeletal History: Herniated disc in lower back. Neurological History: Reports: Head Trauma Psychiatric History: Reports: Addiction, Anxiety, Panic Attack Endocrine/Metabolic History: Reports: Obesity/BMI 30+ Hematologic History: Reports: Blood Transfusion(s) Immunologic History: Reports: None Oncologic (Cancer) History: Reports: None Dermatologic History: Reports: None - Infectious Disease History Infectious Disease History: Reports: MRSA - Past Surgical History HEENT Surgical History: Reports: None Respiratory Surgical History: Reports: Other (See Below) GI Surgical History: Reports: Hernia, Inguinal Other GI Surgeries/Procedures: Right inguinal hernia repair Musculoskeletal Surgical History: Reports: ORIF Other Musculoskeletal Surgeries/Procedures:: L) foot surgery for Fx'd bones. 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 ED EXAM, BEHAVIORAL HEALTH - Physical Exam Exam: See Below Exam Limited By: Intoxication General Appearance: Alert, WD/WN, No Apparent Distress Ears: Normal External Exam, Hearing Grossly Normal Nose: Normal Inspection Throat/Mouth: Normal Inspection, Normal Lips, Normal Voice, No Airway Compromise Head: Atraumatic, Normocephalic Neck: Normal Inspection, Supple Respiratory/Chest: No Respiratory Distress, Lungs Clear, Normal Breath Sounds, No Accessory Muscle Use, Chest Non-Tender Cardiovascular: Normal Peripheral Pulses, Regular Rate, Rhythm, No Edema, No Murmur GI/Abdominal: Normal Bowel Sounds, Soft, Non-Tender, No Distention (Male) Exam: Deferred Rectal (Males) Exam: Deferred Back Exam: Normal Inspection, Full Range of Motion Extremities: Normal Inspection, Normal Range of Motion, Non-Tender, No Pedal Edema, Normal Capillary Refill Neurological: Alert, Normal Mood/Affect, Normal Cognition, Oriented x 3 Psychiatric: Alert, Oriented. No: Normal Cognition (Patient is intoxicated), Homicidal Thoughts, Suicidal Thoughts Skin Exam: Warm, Dry, Intact, Normal color, No rash COURSE, BEHAVIORAL HEALTH COMP - Course Vital Signs: Last Vital Signs Temp 97.4 F 03/25/21 20:45 Pulse 84 03/25/21 20:45 Resp 18 03/25/21 20:45 BP 138/86 03/25/21 20:45 Pulse Ox 97 03/25/21 20:45 Orders, Labs, Meds: Laboratory Tests 03/25/21 03/25/21 03/25/21 Range/Units 21:05 21:05 21:05 WBC 7.63 (4.23-9.07) K/mm3 RBC 4.50 L (4.63-6.08) M/mm3 Hgb 14.8 (13.7-17.5) gm/dl Hct 42.7 (40.1-51.0) % MCV 94.9 H (79.0-92.2) fl MCH 32.9 H (25.7-32.2) pg MCHC 34.7 (32.2-35.5) g/dl RDW Std Deviation 44.2 H (35.1-43.9) fL Plt Count 184 D (163-337) K/mm3 MPV 9.2 L (9.4-12.3) fl Neut % (Auto) 42.1 (34.0-67.9) % Lymph % (Auto) 39.2 (21.8-53.1) % Cloud % (Auto) 13.8 H (5.3-12.2) % Eos % (Auto) 4.3 (0.8-7.0) Baso % (Auto) 0.5 (0.1-1.2) % Neut # (Auto) 3.21 (1.78-5.38) K/mm3 Lymph # (Auto) 2.99 (1.32-3.57) K/mm3 Cloud # (Auto) 1.05 H (0.30-0.82) K/mm3 Eos # (Auto) 0.33 (0.04-0.54) K/mm3 Baso # (Auto) 0.04 (0.01-0.08) K/mm3 Sodium 139 (136-145) mEq/L Potassium 3.5 (3.5-5.1) mEq/L Chloride 105 (98-107) mEq/L Carbon Dioxide 21 (21-32) mEq/L Anion Gap 16.5 H (5-15) BUN 19 H (7-18) mg/dL Creatinine 0.9 (0.7-1.3) mg/dL Est Cr Clr Drug Dosing TNP Estimated GFR (MDRD) > 60 (>60) mL/min BUN/Creatinine Ratio 21.1 H (14-18) Glucose 89 (70-99) mg/dL Calcium 8.0 L (8.5-10.1) mg/dL Magnesium 2.2 (1.8-2.4) mg/dL Total Bilirubin 0.2 (0.2-1.0) mg/dL AST 21 (15-37) U/L ALT 35 (16-63) U/L Alkaline Phosphatase 66 (46-116) U/L Total Protein 7.3 (6.4-8.2) g/dl Albumin 3.5 (3.4-5.0) g/dl Globulin 3.8 gm/dL Albumin/Globulin Ratio 0.9 L (1-2) Urine Opiates Screen Negative (ZTXICJ=600) Ur Buprenorphine Scrn Negative (CUTOFF=10) Ur Oxycodone Screen Negative (PBE1IU=623) Urine Methadone Screen Negative (HBC0DK=682) Ur Propoxyphene Screen Negative (NHISWJ=709) Ur Barbiturates Screen Negative (NZZLUE=486) Ur Tricyclics Screen Negative (SHZGHW=028) Ur Phencyclidine Scrn Negative (CUTOFF=25) Ur Amphetamine Screen Negative (FUSOLT=479) U Methamphetamines Scrn Negative (FJOZYK=518) U Benzodiazepines Scrn Negative (VFYZVC=462) U Cocaine Metab Screen Negative (OAEPXS=847) U Marijuana (THC) Screen Negative (CUTOFF=50) Ethyl Alcohol 0.37 (0.00) gm% Medications Discontinued Medications Generic Name Dose Route Start Last Admin Trade Name Freq PRN Reason Stop Dose Admin Sodium Chloride 1,000 mls @ 999 mls/min 03/25/21 20:54 03/25/21 21:01 Normal Saline IV 03/25/21 20:55 999 mls/min ONETIME ONE Administration Sodium Chloride 1,000 mls @ 999 mls/hr 03/25/21 22:18 03/25/21 22:29 Normal Saline IV 03/25/21 23:18 999 mls/hr ONETIME ONE Administration Sodium Chloride 10 ml 03/25/21 20:54 03/25/21 21:01 Sodium Chloride 0.9% 10 Ml Syringe FLUSH 10 ml ASDIRECTED PRN Administration Keep Vein Open Re-Assessment/Re-Exam: Hematology reveals a WBC of 7.63, hemoglobin 14.8, hematocrit 42.7, platelet count 184 Chemistry reveals a sodium of 139, potassium 3.5, anion gap 16.5, BUN 19, creatinine 0.9, GFR greater than 60, glucose 89, calcium 8.0, magnesium 2.2 Urine drug screen is negative, ethyl alcohol 0.37 Although patient states that he took 4 OxyContin tabs I do not believe this to be true as drug screen was negative. Sepsis Event Note (ED) - Evaluation Sepsis Screening Result: No Definite Risk
== END 2021-03-26 07:08 | disposition home or self-care (01) ==
LOC: JD.ED 20:41
DX: F10.229 Alcohol dependence with intoxication, unspecified (principal); E66.9 Obesity, unspecified; Z68.30 Body mass index [BMI] 30.0-30.9, adult; Z88.0 Allergy status to penicillin; Z91.041 Radiographic dye allergy status; Z91.030 Bee allergy status; Z72.0 Tobacco use; Y90.5 Blood alcohol level of 100-119 mg/100 ml
CPT/HCPCS: 36415; 80053; 80306; 80307; 83735; 85025; 99284; J7030

== ENCOUNTER 2023-05-09 05:22 | Emergency (ER) | payer BC ==
[2023-05-09 17:41] VITALS: BP 166/108; PULSE 97
== END 2023-05-09 06:19 | disposition home or self-care (01) ==
LOC: JD.ED 05:22
DX: M54.6 Pain in thoracic spine (principal); I10 Essential (primary) hypertension; E66.9 Obesity, unspecified; Z88.0 Allergy status to penicillin; Z91.041 Radiographic dye allergy status; Z91.030 Bee allergy status; Z88.8 Allergy status to other drugs, medicaments and biological substances; Z68.30 Body mass index [BMI] 30.0-30.9, adult
CPT/HCPCS: 99283

== ENCOUNTER 2024-01-03 16:09 | Emergency (ER) | payer BC ==
[2024-01-03] MEDS ORDERED: Sodium Chloride 0.9% Inhalation Soln 3 ML Neb INH PRN (16:18)
[2024-01-03] MEDS: Racepinephrine 2.25% 0.5 ML Neb Soln NEB ONE (16:19)
[2024-01-03] MEDS: Sodium Chloride 0.9% 1,000 ML IV SCH (16:22)
[2024-01-03 17:10] LABS: BASOPHILS ABSOLUTE AUTO 0.1 K/mm3 (0.0-0.2); BASOPHILS PERCENT AUTO 0.8 % (0.0-1.0); EOSINOPHILS ABSOLUTE AUTO 0.3 K/mm3 (0.0-0.4); EOSINOPHILS PERCENT AUTO 2.9 % (0.0-6.0); HEMATOCRIT 42.2 % (42.0-52.0); HEMOGLOBIN 14.5 gm/dl (14.0-18.0); IMMATURE GRAN ABSOLUTE AUTO 0.03 K/mm3 (0.00-0.05); IMMATURE GRAN PERCENT AUTO 0.3 % (0.0-0.4); LYMPHOCYTES ABSOLUTE AUTO 1.2 K/mm3 (1.0-4.8); LYMPHOCYTES PERCENT AUTO 12.2 % (24.0-44.0); MEAN CORPUSCULAR HGB CONC 34.4 g/dl (32.0-36.0); MEAN CORPUSCULAR VOLUME 99.1 fl (83.0-99.0); MEAN PLATELET VOLUME 9.1 fl (9.4-12.4); MONOCYTES ABSOLUTE AUTO 0.7 K/mm3 (0.0-0.8); MONOCYTES PERCENT AUTO 7.2 % (0.0-8.0); NEUTROPHILS ABSOLUTE AUTO 7.6 K/mm3 (1.8-7.7); NEUTROPHILS PERCENT AUTO 76.6 % (41.0-71.0); PLATELET COUNT,PLT 234 K/mm3 (150-400); RED BLOOD CELL COUNT 4.26 M/mm3 (4.52-5.90)
[2024-01-03 17:12] LABS: ANION GAP 11.7 (5-15); BUN/CREATININE RATIO 14.5 (14-18); CALCIUM 8.7 mg/dL (8.5-10.1); CREATININE 1.1 mg/dL (0.7-1.3); EST CRCL DRUG DOSING (CG) 78.35 mL/min; POTASSIUM,K 4.7 mEq/L (3.5-5.1)
[2024-01-03 19:48] VITALS: BP 159/80; PULSE 99
== END 2024-01-03 18:51 | disposition home or self-care (01) ==
LOC: JD.ED 16:09
DX: T63.441A Toxic effect of venom of bees, accidental (unintentional), initial encounter (principal); I12.9 Hypertensive chronic kidney disease with stage 1 through stage 4 chronic kidney disease, or unspecified chronic kidney disease; N18.9 Chronic kidney disease, unspecified; E66.9 Obesity, unspecified; Z79.899 Other long term (current) drug therapy; Z88.0 Allergy status to penicillin; Z91.041 Radiographic dye allergy status; Z88.1 Allergy status to other antibiotic agents; Z91.030 Bee allergy status; Z68.30 Body mass index [BMI] 30.0-30.9, adult
CPT/HCPCS: 36415; 80048; 85025; 94640; 96360; 99284; J7030; 99291; J3490

== ENCOUNTER 2024-09-09 10:40 | Emergency (ER) | payer BC ==
[2024-09-09] MEDS: Acetaminophen/HYDROcodone 325-5 MG Tab PO ONE (11:45)
[2024-09-09 11:58] VITALS: BP 150/80; PULSE 80
== END 2024-09-09 11:57 | disposition home or self-care (01) ==
LOC: JD.ED 10:40
DX: S92.424A Nondisplaced fracture of distal phalanx of right great toe, initial encounter for closed fracture (principal); I10 Essential (primary) hypertension; E66.9 Obesity, unspecified; Z79.899 Other long term (current) drug therapy; F17.200 Nicotine dependence, unspecified, uncomplicated; Z88.0 Allergy status to penicillin; Z91.030 Bee allergy status; Z88.1 Allergy status to other antibiotic agents; W22.09XA Striking against other stationary object, initial encounter
CPT/HCPCS: 73630; 99283; A9270